=== PATIENT | male | born 1950 | race Caucasian/White ===

== ENCOUNTER 2017-01-27 21:08 | Inpatient (IN) ==
[2017-01-27] MEDS ORDERED: Ipratropium/Albuterol Neb 3 ML IH ONE (21:18)
[2017-01-27] MEDS ORDERED: methylPREDNISolone 125 MG/2 ML VIAL IVP ONE (21:18)
[2017-01-27] MEDS ORDERED: 0.9 % Sodium Chloride 1,000 ML IVC ONE (21:18)
--- NOTE | 2017-01-27 21:22 | Emergency Department Note ---
Disposition Clinical Impression: COPD exacerbation, Hyperglycemia Dyspnea Qualifiers: Dyspnea type: unspecified Qualified Code(s): R06.00 - Dyspnea, unspecified Disposition: Admitted As Inpatient Condition: Fair Referrals: Unassigned,Provider [Primary Care Provider] - Forms: ED Satisfaction Letter Time of Disposition: 22:28 SOB HPI - General Chief Complaint: ED Shortness of Breath/Dyspnea Stated Complaint: ZENON/cough Time Seen by Provider: 01/27/17 21:11 Source: patient, EMS Mode of arrival: EMS Limitations: no limitations Nursing Notes Reviewed: Yes Vital Signs Reviewed: Yes - History of Present Illness 66-year-old male history of borderline diabetes, tobacco use presents for evaluation of dyspnea. Patient states it started yesterday. Notes dyspnea at baseline. Does not take oxygen at home. Patient also notes a productive yellow sputum cough. Subjective fevers. Chest pain related to cough. Denies any nausea or vomiting. No belly pain. Patient states that he uses his inhaler at home without significant relief. Patient has not seen a guitar repair technician. - Related Data Allergies Allergy/AdvReac Type Severity Reaction Status Date / Time No Known Allergies Allergy Verified 01/27/17 21:08 All systems ED: reviewed and negative except as stated. Constitutional: Reports: as per HPI, fever Eyes: Reports: as per HPI ENT ED: Reports: as per HPI Cardiovascular: Reports: as per HPI, chest pain Respiratory: Reports: as per HPI, cough, dyspnea, sputum production Gastrointestinal: Reports: as per HPI. Denies: abdominal pain, nausea Genitourinary: Reports: as per HPI Musculoskeletal: Reports: as per HPI Integumentary: Reports: as per HPI Neurological: Reports: as per HPI Psychiatric: Reports: as per HPI Endocrine: Reports: as per HPI Hematological/Lymphatic: Reports: as per HPI Past Medical History - Past Medical History Medical history: Reports: COPD Psychiatric history: Reports: depression - Social History Smoking Status: Current every day smoker Smokeless Tobacco Status: No Alcohol use: Reports: none Drug use: Reports: none Physical Exam - General Limitations: no limitations General appearance: alert, in no apparent distress - Head Head exam: atraumatic, normocephalic, normal inspection - Eye Eye exam: Present: normal appearance, PERRL, EOMI - ENT ENT exam: normal exam, mucous membranes moist - Neck Neck exam: Present: normal inspection, trachea midline - Chest Chest inspection: Present: normal inspection, symmetric chest wall rise. Absent : tenderness - Respiratory Respiratory exam: Present: wheezes (Diffuse expiratory wheezes), prolonged expiratory phase, other (Diffusely decreased breath sounds). Absent: respiratory distress - Cardiovascular Cardiovascular exam: Present: normal rhythm, tachycardia. Absent: systolic murmur - Abdominal Exam Abdominal exam: Present: soft, Non-Tender - Extremities Exam Extremities exam: Present: normal inspection. Absent: pedal edema - Back Exam Back exam: Present: normal inspection - Neurological Exam Neurological exam: Present: alert - Skin Skin exam: Present: warm, dry, intact, normal color Course Course Narrative: Patient seen and examined. Patient on 2 L nasal cannula. Patient notes dyspnea. Patient's history of physical or consistent with a COPD exacerbation. Patient is a current every day smoker. Patient's lungs show diminished air movement with expiratory wheezes. Patient will get basic laboratory, EKG, chest x-ray as well as aerosols and steroids and IV fluid hydration. Disposition pending. - Reevaluation(s) Reevaluation #1: Patient seen and reexamined upon interventions. Patient notes some slight relief with the nebs. Patient handed to the restroom without oxygen was noted to be 83% and dyspnic on exertion. Patient does not have oxygen at home. Patient will likely be admitted for COPD exacerbation. Patient is aware of plan of care and agree. Time: 22:27 Reevaluation #2: Patient will get PO levaquin. Time: 22:50 Vital Signs Temperature 98.0 F 01/27/17 21:10 Pulse Rate 105 01/27/17 21:10 Respiratory Rate 18 01/27/17 21:10 Blood Pressure 136/77 01/27/17 21:10 O2 Sat by Pulse Oximetry 96 01/27/17 21:10 Temperature 98.0 F 01/27/17 21:10 Pulse Rate 105 01/27/17 21:10 Respiratory Rate 24 01/27/17 23:10 Blood Pressure 136/77 01/27/17 21:10 O2 Sat by Pulse Oximetry 93 01/27/17 23:10 Oxygen Delivery Oxygen Delivery Nasal Cannula Shortness of Breath/Dyspnea - MDM Narrative Medical decision making narrative: 66-year-old male here of shortness of breath. Patient is a current every day smoker. Patient's dyspnea started yesterday. Associated with subjective fevers and productive cough. Patient has no history of recent admission in the past 3 months. Patient was treated with nebs and steroids. Patient did not improve initially with interventions. Patient ambulated to the restroom with 83 % saturation. Patient does not have oxygen at home. Patient has not seen a guitar repair technician. Patient will likely need admission for further respiratory care. - Lab Data Lab results reviewed: Yes I reviewed the patient's lab results. Result diagrams: 01/27/17 21:31 01/27/17 21:31 Lab Results 01/27/17 01/27/17 01/27/17 Range/Units 21:31 21:31 21:31 WBC 10.7 (4.3-11.1) K/mcL RBC 4.45 (4.19-5.50) M/mcL Hgb 14.3 (12.9-16.9) g/dL Hct 41.2 (37.5-50.1) % MCV 92.6 (83.0-100.0) fL MCH 32.1 (28.0-33.3) pg MCHC 34.7 (31.6-35.5) g/dL RDW 12.0 (11.5-14.5) % Plt Count 179 (140-400) K/mcL MPV 9.6 (9.4-12.4) fL Immature Gran % 0.8 (0-4) % Seg Neutrophils % 75.8 % Lymphocytes % 13.3 % Monocytes % 9.0 % Eosinophils % 0.8 % Basophils % 0.3 % Neutrophils # 8.1 (1.6-8.9) K/mcL Lymphocytes # 1.4 (0.6-4.6) K/mcL Monocytes # 1.0 (0.0-1.3) K/mcL Eosinophils # 0.1 (0.0-0.6) K/mcL Basophils # 0.0 (0.0-0.2) K/mcL Sodium 140 (136-145) mEq/L Potassium 3.9 (3.5-4.5) mEq/L Chloride 102 (98-109) mEq/L Carbon Dioxide 30 H (19-29) mEq/L BUN 14 (8-26) mg/dL Creatinine 0.94 (0.72-1.25) mg/dL Est GFR ( Amer) > 60 (> 60) Est GFR (Non-Af Amer) > 60 (> 60) BUN/Creatinine Ratio 15 (6-26) Glucose 171 H (70-99) mg/dL Calculated Osmolality 295 (280-300) Calcium 9.0 (8.6-10.8) mg/dL Troponin I 0.00 (0-0.03) ng/mL B-Natriuretic Peptide (0-100) pg/mL 01/27/17 Range/Units 21:31 WBC (4.3-11.1) K/mcL RBC (4.19-5.50) M/mcL Hgb (12.9-16.9) g/dL Hct (37.5-50.1) % MCV (83.0-100.0) fL MCH (28.0-33.3) pg MCHC (31.6-35.5) g/dL RDW (11.5-14.5) % Plt Count (140-400) K/mcL MPV (9.4-12.4) fL Immature Gran % (0-4) % Seg Neutrophils % % Lymphocytes % % Monocytes % % Eosinophils % % Basophils % % Neutrophils # (1.6-8.9) K/mcL Lymphocytes # (0.6-4.6) K/mcL Monocytes # (0.0-1.3) K/mcL Eosinophils # (0.0-0.6) K/mcL Basophils # (0.0-0.2) K/mcL Sodium (136-145) mEq/L Potassium (3.5-4.5) mEq/L Chloride (98-109) mEq/L Carbon Dioxide (19-29) mEq/L BUN (8-26) mg/dL Creatinine (0.72-1.25) mg/dL Est GFR ( Amer) (> 60) Est GFR (Non-Af Amer) (> 60) BUN/Creatinine Ratio (6-26) Glucose (70-99) mg/dL Calculated Osmolality (280-300) Calcium (8.6-10.8) mg/dL Troponin I (0-0.03) ng/mL B-Natriuretic Peptide 29 (0-100) pg/mL - Radiology Data Radiology results reviewed: Yes I reviewed the patient's radiology results. Chest X-Ray 01/27/17 21:19 IMPRESSION: Normal chest x-ray D/ / Mauro Sawant MD / Mauro Sawant MD Interpreting Provider: Mauro Sawant MD - EKG Data EKG attestation: Yes I reviewed and interpreted this EKG. EKG shows normal: Reports: sinus rhythm Rate: Reports: tachycardia Rhythm: Reports: NSR [place]/QRS: Reports: normal, RBBB (incomplete) When compared to previous EKG there are: previous EKG unavailable Interpretation: Reports: nonspecific ST-T wave changes S.B.A.R. - S.B.A.RConsuelo Situation: Demographics, MOA Background: Presenting Complaint Assessment: Vital Signs, Course and respsone to treatment, Patient/Family Expectation, Pertinant Lab Results Recommendation: Barrier(s) to disposition, Recommendation based on pending studies, treatments, or consults S.B.A.RConsuelo Report Given to: Dr. Vincent PadronBConsueloADena Repor Time: 23:03 Attestation Statement - Attestation Attestation: I examined this patient and my medical decision-making was reviewed with the DIRECTOR OF REVENUE CYCLE MANAGEMENT/PA/Advanced Practice Nurse/Resident Physician. I agree with the documented findings, disposition and treatment plan as described except to the extent set forth below. Patient to the emergency department with cough sputum and fever since yesterday. He is a smoker. History of COPD. Use his inhaler today with no relief. On examination he is in no acute distress. Diffuse expiratory wheezing. Plan. Nebs and steroids. Chest x-ray cardiac workup. The patient's workup was unremarkable. He has had. DuoNeb sofa short of breath. His oxygen saturation drops to 80% with ambulation. Still with decreased air exchange in the next 3 wheezing. Patient will be admitted.
[2017-01-27 21:41] LABS: Hematocrit 41.2 % (37.5-50.1); Hemoglobin 14.3 g/dL (12.9-16.9); Immature Granulocytes % 0.8 % (0-4); Lymphocytes % 13.3 %; Mean Corpuscular HGB Conc 34.7 g/dL (31.6-35.5); Mean Corpuscular Hemoglobin 32.1 pg (28.0-33.3); Mean Corpuscular Volume 92.6 fL (83.0-100.0); Mean Platelet Volume 9.6 fL (9.4-12.4); Platelet Count 179 K/mcL (140-400); Red Blood Count 4.45 M/mcL (4.19-5.50); Segmented Neutrophils % 75.8 %
[2017-01-27 21:42] LABS: Basophils % 0.3 %; Eosinophils # 0.1 K/mcL (0.0-0.6); Eosinophils % 0.8 %; Lymphocytes # 1.4 K/mcL (0.6-4.6); Neutrophils # 8.1 K/mcL (1.6-8.9)
[2017-01-27 21:54] LABS: BUN/Creatinine Ratio 15 (6-26); Blood Urea Nitrogen 14 mg/dL (8-26); Carbon Dioxide 30 mEq/L (19-29); Chloride 102 mEq/L (98-109); Glucose 171 mg/dL (70-99); Osmolality,Calculated 295 (280-300); Potassium 3.9 mEq/L (3.5-4.5); Sodium 140 mEq/L (136-145); eGFR For African Americans > 60 (> 60); eGFR For Non-African Americans > 60 (> 60)
[2017-01-27] MEDS ORDERED: Albuterol 2.5 MG/3 ML NEBULIZER IH ONE (22:30)
[2017-01-27] MEDS ORDERED: Levofloxacin 750 MG/150 ML 750 MG/150 ML BAG IVPB ONE (22:47)
[2017-01-27] MEDS ORDERED: levoFLOXacin 500 MG TABLET PO ONE (22:50)
[2017-01-27 23:35] LABS: VBG HCO3 27.3 mEq/L (21-27); VBG PH 7.4 pH Units (7.32-7.42)
[2017-01-28] MEDS ORDERED: Naloxone 0.4 MG/ML INJ IVP PRN (02:20)
[2017-01-28] MEDS ORDERED: Acetaminophen 325 MG TABLET PO PRN (02:20)
[2017-01-28] MEDS ORDERED: Dextrose Gel 15 GM PO PRN ×2 (02:23)
[2017-01-28] MEDS ORDERED: *HR* Dextrose 50 % in Water (Syg) 50 ML SYRINGE IVP PRN (02:23)
[2017-01-28] MEDS ORDERED: D5% in Water 1,000 ML IVC PRN (02:23)
--- NOTE | 2017-01-28 02:47 | Internal Med History&Physical ---
Date of Encounter: 01/28/17 Time of Encounter: 02:00 Assessment and Plan (1) COPD exacerbation Current visit: Yes Status: Acute Acute infective exacerbation of COPD. Treatment with Solu-Medrol, levofloxacin , Mucinex. (2) Acute respiratory failure Current visit: Yes Status: Acute Secondary to Acute exacerbation of COPD. Supplemental oxygen; continue therapy for COPD exacerbation. Qualifiers: Respiratory failure complication: hypoxia Qualified Code(s): J96.01 - Acute respiratory failure with hypoxia (3) ARABELLA (obstructive sleep apnea) Current visit: Yes Status: Chronic (4) Hyperglycemia Current visit: Yes Status: Acute Start sliding scale insulin. check A1C (5) DVT prophylaxis Current visit: Yes Status: Acute Enoxaparin (6) Nicotine dependence Current visit: Yes Status: Chronic Counseled for smoking cessation Qualifiers: Nicotine product type: cigarettes Substance use status: other nicotine- induced disorder Qualified Code(s): F17.218 - Nicotine dependence, cigarettes , with other nicotine-induced disorders Internal Medicine - H&P: HPI Chief complaint: Shortness of breath Admitted From: Emergency Dept Plans for Post Hospital Care: Home History of present illness: Mr. Medeiros is a 66 year old male with past medical history significant for COPD, ARABELLA - on CPAP, borderline diabetes and depression. He is current every day smoker. He presents to the emergency department with 3 day history of worsening shortness of breath on minimal exertion - he used his inhaler at home without significant relief. He reports cough with some dark yellow sputum but denies hemoptysis. He denies fever, chills, nausea, vomiting. He reports anterior chest pain associated with coughing. He denies abdominal pain, dysuria , hematuria, bowel problems. He was evaluated in the emergency department and was noted to have significant wheezing and was treated with bronchodilators, levofloxacin and Solu-Medrol, for suspected COPD exacerbation. He was noted to be hypoxic when he walked to the restroom without oxygen saturation was noted to be 83% and dyspnic on exertion. Chest x-ray was negative. He he is admitted to the hospitalist service for further workup and management. Past Med Surg Social Fam HX - Past Medical History Medical history: COPD Psychiatric history: depression - Past Surgical History Surgical History: herniorrhaphy - Social History Smoking Status: Current every day smoker Smokeless Tobacco Status: No Alcohol use: none Drug use: none - Additional Family History Additional family history: Both his parents are alive. Denies major medical problems Internal Medicine - H&P: Meds Allergies No Known Allergies Allergy (Verified 01/27/17 21:08) All Systems PM: A 10-system review of systems was performed and is negative for pertinent findings except as documented above in the HPI. - Constitutional Vitals: Temp Pulse Resp BP Pulse Ox 98.0 F 100 20 122/70 94 01/28/17 01:57 01/28/17 01:57 01/28/17 01:57 01/28/17 01:57 01/28/17 01:57 Exam: General: Not in acute pain at the time of my evaluation HEENT: Oral mucosa is moist. No conjunctival palor or scleral icterus. Using pursed lips to breath Neck: No obvious neck swellings Lungs: Bilateral wheezes present Cardiac: Regular rate and rhythm. No significant murmurs Abdomen: obese, non tender. Bowel sounds present Genitourinary: No wilkins catheter Neurological: Alert and oriented. No gross localizing deficits Psych: Not aggressive or agitated Extremities: no significant leg edema Skin: No generalized rash Internal Med - H&P Results - Labs CBC & Chem 7: 01/27/17 21:31 01/27/17 21:31 - EKG Data -: EKG Interpreted by Myself EKG shows normal: sinus rhythm Rate: tachycardia - EKG Data EKG comments: First-degree AV block, partial RBBB 01/28/17 02:48 - Impressions ITS Impressions Chest X-Ray 01/27/17 21:19 IMPRESSION: Normal chest x-ray D/ / Mauro Sawant MD / Mauro Sawant MD Interpreting Provider: Mauro Sawant MD
[2017-01-28] MEDS ORDERED: Ipratropium/Albuterol Neb 3 ML IH PRN (03:11)
[2017-01-28] MEDS: Ipratropium/Albuterol Neb 3 ML IH SCH ×5 (04:10→21:59)
[2017-01-28 04:51] LABS: Basophils % 0.1 %; Hematocrit 39.1 % (37.5-50.1); Hemoglobin 13.4 g/dL (12.9-16.9); Immature Granulocytes % 0.9 % (0-4); Lymphocytes # 0.7 K/mcL (0.6-4.6); Lymphocytes % 7.4 %; Mean Corpuscular HGB Conc 34.3 g/dL (31.6-35.5); Mean Corpuscular Hemoglobin 31.8 pg (28.0-33.3); Mean Corpuscular Volume 92.7 fL (83.0-100.0); Mean Platelet Volume 10.3 fL (9.4-12.4); Monocytes # 0.2 K/mcL (0.0-1.3); Monocytes % 1.8 %; Neutrophils # 8.5 K/mcL (1.6-8.9); Platelet Count 176 K/mcL (140-400); Red Blood Count 4.22 M/mcL (4.19-5.50); Red Cell Distribution Width 11.9 % (11.5-14.5); Segmented Neutrophils % 89.8 %
[2017-01-28 04:55] LABS: Hemoglobin A1C 6.1 %
[2017-01-28 04:59] LABS: BUN/Creatinine Ratio 14 (6-26); Blood Urea Nitrogen 13 mg/dL (8-26); Calcium 8.7 mg/dL (8.6-10.8); Carbon Dioxide 23 mEq/L (19-29); Chloride 105 mEq/L (98-109); Glucose 191 mg/dL (70-99); Osmolality,Calculated 293 (280-300); Potassium 4.1 mEq/L (3.5-4.5); Sodium 139 mEq/L (136-145); eGFR For African Americans > 60 (> 60); eGFR For Non-African Americans > 60 (> 60)
[2017-01-28] MEDS: MethylPREDNISolone 40 MG/ML VIAL IVP SCH ×3 (05:31→17:43)
[2017-01-28] MEDS: *HR* Enoxaparin 40 MG/0.4 ML SYRINGE SQ SCH (05:31)
[2017-01-28] MEDS: Famotidine 20 MG TABLET PO SCH ×3 (08:31→22:27)
[2017-01-28] MEDS: Insulin LISPRO 300 UNITS/3 ML VIAL SQ SCH ×3 (08:31→17:44)
[2017-01-28] MEDS ORDERED: *HR* Morphine 2 MG/ML SYRINGE IVP PRN (14:08)
[2017-01-28] MEDS ORDERED: *HR* HYDROcodone/Acet 5/325 mg TABLET PO PRN (14:08)
[2017-01-28] MEDS ORDERED: Albuterol 2.5 MG/3 ML NEBULIZER IH PRN (14:08)
--- NOTE | 2017-01-28 14:10 | Event Note ---
Date of Encounter: 01/28/17 Time of Encounter: 12:30 Patient seen and examined. On examination, patient is sitting upright on the side of his bed eating lunch. Patient said he feels a lot better than yesterday but is not yet back to his baseline. He states that when he goes to the bathroom, he has to stop and catch his breath before he can come back. He states he is not on oxygen at home is usually able to move freely about his house without any restrictions. Chest x-ray negative. Continue Levaquin. Currently on 2 L per nasal cannula continuously. Continue CPAP while asleep. Borderline diabetic with an A1c of 6.1%. Declines tobacco counseling. Waiting for his home med list to be finalized ( had to bring in list), will continue once verified. ITS Impressions Chest X-Ray 01/27/17 21:19 IMPRESSION: Normal chest x-ray D/ / Mauro Sawant MD / Mauro Sawant MD Interpreting Provider: Mauro Sawant MD
[2017-01-28] MEDS ORDERED: traZODone 50 MG TABLET PO PRN (17:28)
[2017-01-28] MEDS: BuPROPion SR (12 HR) 100 MG TABLET PO SCH (17:44)
--- NOTE | 2017-01-28 20:42 | Electrocardiograph Report ---
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
[2017-01-28] MEDS ORDERED: Insulin LISPRO 300 UNITS/3 ML VIAL SQ SCH (21:00)
[2017-01-28] MEDS ORDERED: Levofloxacin 750 MG/150 ML 750 MG/150 ML BAG IVPB SCH (22:00)
[2017-01-29] MEDS: MethylPREDNISolone 40 MG/ML VIAL IVP SCH ×3 (00:07→11:26)
[2017-01-29] MEDS: Fluticasone Propionate Nasal 50 MCG/SPRAY BOTTLE NS SCH ×2 (00:07→08:21)
[2017-01-29] MEDS: Ipratropium/Albuterol Neb 3 ML IH SCH ×4 (04:25→15:50)
[2017-01-29] MEDS: *HR* Enoxaparin 40 MG/0.4 ML SYRINGE SQ SCH (05:58)
[2017-01-29] MEDS: Insulin LISPRO 300 UNITS/3 ML VIAL SQ SCH ×2 (08:22→11:23)
[2017-01-29] MEDS: Famotidine 20 MG TABLET PO SCH ×2 (08:24)
[2017-01-29] MEDS: BuPROPion SR (12 HR) 100 MG TABLET PO SCH (08:28)
[2017-01-29] MEDS ORDERED: Aspirin 81 MG TAB.CHEW PO SCH (09:00)
[2017-01-29 10:56] VITALS: BP 114/68
--- NOTE | 2017-01-29 13:30 | Discharge Summary ---
Date of Encounter: 01/29/17 Time of Encounter: 10:30 - Discharge Diagnosis (1) COPD exacerbation Priority: Primary Status: Acute Comments: Patient stating his shortness of breath was consistent with his baseline on day of discharge. He did not qualify for supplemental oxygenation. Ideally, would like to have kept him overnight to wean him off IV Solu-Medrol but patient states he needs to go home today. We will send with 3 week taper prednisone. Continues to smoke. (2) Borderline diabetes Priority: Primary Status: Acute Comments: A1c 6.1%. Recommend dietary and lifestyle changes. (3) Acute respiratory failure Priority: Primary Status: Resolved Comments: patient did not qualify for supplemental oxygenation on day of discharge. Qualifiers: Respiratory failure complication: hypoxia Qualified Code(s): J96.01 - Acute respiratory failure with hypoxia (4) ARABELLA (obstructive sleep apnea) Priority: Secondary Status: Chronic (5) DVT prophylaxis Priority: Primary Status: Acute Comments: Subcutaneous Lovenox while admitted (6) Nicotine dependence Priority: Secondary Status: Chronic Comments: Declined counseling Qualifiers: Nicotine product type: cigarettes Substance use status: other nicotine- induced disorder Qualified Code(s): F17.218 - Nicotine dependence, cigarettes , with other nicotine-induced disorders - Discharge Medications Prescriptions: GuaiFENesin ER [Mucinex] 600 mg PO BID #14 tbbp.12hr Levofloxacin 750 mg PO DAILY #4 tablet PredniSONE 10 mg PO DAILY #46 tablet Home Medications: Albuterol Sulfate [Proair Hfa] 2 puff IH Q6H PRN 01/28/17 [History] Alendronate Sodium [Fosamax] 70 mg PO QWEEK 01/28/17 [History] Aspirin 81 mg PO DAILY 01/28/17 [History] Atorvastatin Calcium [Lipitor] 10 mg PO DAILY 01/28/17 [History] BuPROPion SR (12 HR) [Wellbutrin SR] 200 mg PO QAM 01/28/17 [History] Calcium Carbonate/Vitamin D3 [Calcium 250+D Tablet] 1 tab PO DAILY 01/28/17 [ History] Cholecalciferol (D-3) [Vitamin D] 2,000 unit PO DAILY 01/28/17 [History] Fluticasone Propionate Nasal [Flonase] 2 spray NS DAILY 01/28/17 [History] Meloxicam [Mobic] 7.5 mg PO DAILY 01/28/17 [History] Multivitamin [Multi-Day Vitamins] 1 tab PO DAILY 01/28/17 [History] Nicotine Gum [Nicorette gum] 2 mg BC Q2H 01/28/17 [History] Olodaterol HCl [Striverdi Respimat] 2 puff IH DAILY 01/28/17 [History] Quetiapine Fumarate [Seroquel] 100 mg PO BID 01/28/17 [History] Quetiapine Fumarate [Seroquel] 200 mg PO HS 01/28/17 [History] Ranitidine HCl [Heartburn Relief] 150 mg PO BID 01/28/17 [History] Trazodone HCl 100 mg PO HS PRN 01/28/17 [History] GuaiFENesin ER [Mucinex] 600 mg PO BID #14 tbbp.12hr 01/29/17 [Rx] Levofloxacin 750 mg PO DAILY #4 tablet 01/29/17 [Rx] PredniSONE 10 mg PO DAILY #46 tablet 01/29/17 [Rx] Allergies/Adverse Reactions: Allergies No Known Allergies Allergy (Verified 01/27/17 21:08) Date of admission: 01/28/17 02:20 Primary care physician: PCP SD Discharging clinician: Joya Ibrahim Anticipated date of discharge: 01/29/17 - Patient Status Disposition: Home, Self-Care Condition: Fair Functional capacity at discharge: independent ambulation Overall status at discharge: patient is back to baseline - Discharge Instructions Follow Up With: SD,PCP [Primary Care Provider] - 02/05/17 1:30 pm Additional Instructions: Follow-up with primary care provider as scheduled - Diet and Activity Activity: increase activity as tolerated Diet: diabetic diet, low fat, low cholesterol, low salt diet Hospital course: Mr. Medeiros is a 66 year old male with past medical history of COPD, ARABELLA on CPAP, borderline diabetes, and depression, tobacco abuse. Patient presented to emergency department chief complaint a 3 day history of worsening shortness of breath with minimal exertion. He states he uses inhalers at home without relief. Patient also reporting cough with dark yellow sputum production but denies hemoptysis. Workup in the emergency department unremarkable. Chest x- ray negative. Patient was admitted to the hospitalist service for further evaluation and management of his COPD exacerbation. He initially required supplemental oxygenation however he was weaned to room air prior to discharge on the second day of admission. On day of discharge, he states that he was back to his baseline and wanted to go home. Ideally, would like to have kept him overnight to wean him off IV Solu-Medrol but patient states he needs to go home today. We will send with 2-3 week taper of prednisone. On the first day that is his admission, he was not able to walk to and from the bathroom without stopping to catch his breath and on day of discharge, he was able to ambulate around the unit and his room freely. He was discharged home in stable condition with close outpatient follow-up recommended. Regarding his controller meds, he is only on a LABA and a BRADLEY. Recommend possible addition of an ICS at the discretion of his PCP. ITS Impressions Chest X-Ray 01/27/17 21:19 IMPRESSION: Normal chest x-ray D/ / Mauro Sawant MD / Mauro Sawant MD Interpreting Provider: Mauro Sawant MD - Time Spent with Patient Total time spent providing and/or coordinating discharge services: - Constitutional Vitals: Temp Pulse Resp BP Pulse Ox 98.0 F 84 16 114/68 95 01/29/17 10:51 01/29/17 10:51 01/29/17 11:42 01/29/17 10:51 01/29/17 11:42 General appearance: Present: A&O X 3, pleasant, no acute distress, answers questions appropriately - Head Head exam: Present: atraumatic, normocephalic - Eye Eye exam: Present: PERRL, conjuntiva pink, sclera anicteric Pupils: Present: PERRL - Neck Neck exam general surgery: Present: supple, trachea midline. Absent: lymphadenopathy - Respiratory Respiratory exam: Present: accessory muscle use, decreased breath sounds, prolonged expiratory phase. Absent: rales, respiratory distress, rhonchi, wheezes - Cardiovascular Cardiovascular exam: Present: RRR, +S1, +S2. Absent: diastolic murmur, gallop, rubs, systolic murmur - GI/Abdominal GI/Abdominal exam: Present: normal bowel sounds, soft, no peritoneal signs. Absent: distended, tenderness - Extremities Exam Extremities exam: Present: warm, radial pulses palpable and symetrical. Absent : calf tenderness, cyanotic, pedal edema - Neurological Exam Neurological exam: Present: alert, CN II-XII intact, normal gait, oriented X3, no focal deficits, strengths equal and symetr throughout. Absent: pronater drift, facial droop, speech deficit - Skin Skin exam: Present: dry, intact, normal color, warm
== END 2017-01-29 16:05 | disposition home or self-care (01) | DRG 190 ==
LOC: EMEROO 21:08 → 3BNU 21:08
PROVIDERS: ADMIT Internal Medicine; ATTEND Nurse Practitioner Family

== ENCOUNTER 2022-03-08 11:54 | Inpatient (IN) ==
[2022-03-08] MEDS ORDERED: methylPREDNISolone 125 MG/2 ML VIAL IVP ONE (12:19)
[2022-03-08] MEDS ORDERED: Ipratropium/Albuterol Neb 3 ML IH ONE (12:19)
[2022-03-08] MEDS ORDERED: cefTRIAXone 1,000 MG in 0.9 % Sodium Chloride 10 ML IVP ONE (12:19)
[2022-03-08] MEDS ORDERED: Ondansetron 4 MG/2 ML VIAL IVP ONE (12:20)
[2022-03-08 12:52] LABS: Basophils % 0.3 %; Hematocrit 45.9 % (37.5-50.1); Hemoglobin 15.2 g/dL (12.9-16.9); Immature Granulocytes % 0.4 % (0-4); Lymphocytes # 0.7 K/mcL (0.6-4.6); Lymphocytes % 6.8 %; Mean Corpuscular HGB Conc 33.1 g/dL (31.6-35.5); Mean Corpuscular Hemoglobin 32.5 pg (28.0-33.3); Mean Corpuscular Volume 98.3 fL (83.0-100.0); Mean Platelet Volume 11.2 fL (9.4-12.4); Monocytes # 1.1 K/mcL (0.0-1.3); Monocytes % 11.1 %; Neutrophils # 8.3 K/mcL (1.6-8.9); Platelet Count 154 K/mcL (140-400); Red Blood Count 4.67 M/mcL (4.19-5.50); Segmented Neutrophils % 81.4 %; White Blood Count 10.2 K/mcL (4.3-11.1)
[2022-03-08 12:56] LABS: ABG Base Excess 2 mEq/L (-2 to 3); ABG HCO3 34 mEq/L (21-27); ABG Oxygen Saturation 100 % (95-98); ABG PCO2 94 mmHg (35-45); ABG PH 7.17 pH Units (7.32-7.45); ABG PO2 286 mmHg (85-104); ABG TCO2 37 mEq/L (20-26); Blood Gas Modality BiLevel
[2022-03-08 13:03] LABS: INR 1.3; Prothrombin Time 14.2 Seconds (9.4-12.1)
[2022-03-08 13:06] LABS: Activated Partial Thrombo Time 29.4 Seconds (26.0-36.0)
[2022-03-08 13:18] LABS: Adenovirus Not Detected (Not Detect); Coronavirus 229E Not Detected (Not Detect); Coronavirus HKU1 Not Detected (Not Detect); Coronavirus NL63 Not Detected (Not Detect); Coronavirus OC43 Not Detected (Not Detect); Human Metapneumovirus Not Detected (Not Detect); Human Rhinovirus/Enterovirus Not Detected (Not Detect); Influenza A Subtype 2009 H1 Not Detected (Not Detect); Influenza B Not Detected (Not Detect); Parainfluenza Virus 1 Not Detected (Not Detect); SARS-CoV-2 Not Detected (Not Detect)
[2022-03-08 13:19] LABS: Bordetella Pertussis Not Detected (Not Detect); Chlamydophila pneumoniae Not Detected (Not Detect); Mycoplasma pneumoniae Not Detected (Not Detect); Parainfluenza Virus 2 Not Detected (Not Detect); Parainfluenza Virus 3 Not Detected (Not Detect); Parainfluenza Virus 4 DETECTED (Not Detect); Respiratory Syncytial Virus Not Detected (Not Detect)
[2022-03-08 13:35] LABS: Albumin 4.6 g/dL (3.5-5.7); Albumin/Globulin Ratio 1.4 (1.1-2.2); Bilirubin,Direct 0.3 mg/dL (0.0-0.2); Bilirubin,Indirect 0.6 mg/dL (0.0-1.0); Bilirubin,Total 0.9 mg/dL (0.3-1.0); Calcium 9.5 mg/dL (8.6-10.3); Globulin 3.4 g/dL (2.4-3.5); Potassium 4.5 mEq/L (3.5-5.1); Troponin I 0.03 ng/mL (< 0.04)
[2022-03-08] MEDS ORDERED: Melatonin 3 MG TABLET PO PRN (14:33)
[2022-03-08] MEDS ORDERED: Naloxone 0.4 MG/ML INJ IVP PRN (14:33)
[2022-03-08] MEDS ORDERED: Ondansetron ODT 4 MG TAB.RAPDIS SL PRN (14:33)
[2022-03-08 14:52] LABS: ABG Base Excess 2 mEq/L (-2 to 3); ABG HCO3 35 mEq/L (21-27); ABG Oxygen Saturation 100 % (95-98); ABG PCO2 104 mmHg (35-45); ABG PH 7.14 pH Units (7.32-7.45); ABG PO2 346 mmHg (85-104); ABG TCO2 39 mEq/L (20-26); Blood Gas Modality BiLevel
[2022-03-08] MEDS ORDERED: *HR* Etomidate 40 MG/20 ML VIAL IVP ONE (15:15)
[2022-03-08] MEDS ORDERED: *HR* Rocuronium Bromide 50 MG/5 ML VIAL IVP ONE (15:15)
[2022-03-08] MEDS ORDERED: *HR* Midazolam HCl 2 MG/2 ML VIAL IVP ONE (15:15)
[2022-03-08 15:52] LABS: ABG Base Excess 2 mEq/L (-2 to 3); ABG HCO3 34 mEq/L (21-27); ABG Oxygen Saturation 96 % (95-98); ABG PCO2 96 mmHg (35-45); ABG PH 7.16 pH Units (7.32-7.45); ABG PO2 107 mmHg (85-104); ABG TCO2 37 mEq/L (20-26); Blood Gas Modality BiLevel
[2022-03-08] MEDS ORDERED: *HR* EPINEPHrine 100 MCG/10 ML SYRINGE IVP ONE (16:05)
[2022-03-08] MEDS ORDERED: *HR* EPINEPHrine 100 MCG/10 ML SYRINGE IVP PRN (16:07)
[2022-03-08] MEDS ORDERED: *HR* FentaNYL (PF) 1,000 MCG/20 ML VIAL ONE (16:17)
[2022-03-08] MEDS ORDERED: *HR* Midazolam HCl 50 MG/10 ML VIAL IVC ONE (16:17)
[2022-03-08] MEDS ORDERED: *HR* Norepinephrine 4 MG/4 ML VIAL IVC ONE (16:18)
[2022-03-08] MEDS ORDERED: 0.9 % Sodium Chloride 250 ML ONE (16:18)
[2022-03-08] MEDS: FentaNYL (PF) 1,000 MCG/100 ML IV.SOLN IVC SCH (16:36)
[2022-03-08] MEDS: Midazolam HCl 50 MG/50 ML IV.SOLN IVC SCH ×2 (16:37→23:54)
[2022-03-08] MEDS ORDERED: 0.9 % Sodium Chloride 1,000 ML IVC ONE (18:46)
[2022-03-08] MEDS ORDERED: Artificial Tears SOLN 15 ML BOTTLE BOTH EYES PRN (18:54)
[2022-03-08] MEDS: Norepinephrine 4 MG/254 ML IV.SOLN IVC SCH (19:22)
[2022-03-08] MEDS: levoFLOXacin 750 MG/150 ML 750 MG/150 ML BAG IVPB SCH (19:37)
[2022-03-08] MEDS: Pantoprazole 40 MG VIAL IVP SCH (19:37)
[2022-03-08] MEDS: Artificial Tears SOLN 15 ML BOTTLE BOTH EYES SCH ×2 (19:38→23:24)
[2022-03-08] MEDS ORDERED: MethylPREDNISolone 40 MG/ML VIAL IVP SCH (20:24)
[2022-03-08 20:37] LABS: ABG Base Excess 2 mEq/L (-2 to 3); ABG HCO3 30 mEq/L (21-27); ABG Oxygen Saturation 98 % (95-98); ABG PCO2 62 mmHg (35-45); ABG PO2 110 mmHg (85-104); ABG TCO2 32 mEq/L (20-26); Blood Gas VT 500 cc
[2022-03-08] MEDS ORDERED: Perflutren Lipid Microsphere 1.3 ML in 0.9 % Sodium Chloride 8.7 ML IVP PRN (20:42)
[2022-03-08] MEDS: *HR* Heparin 5,000 UNIT/ML VIAL SQ SCH (20:52)
[2022-03-08] MEDS: Chlorhexidine Rinse 15 ML MOUTHWASH MM SCH (20:52)
[2022-03-08] MEDS: MethylPREDNISolone 40 MG/ML VIAL IVP SCH (23:26)
[2022-03-09 03:27] LABS: Basophils % 0.1 %; Hematocrit 39.2 % (37.5-50.1); Immature Granulocytes % 0.6 % (0-4); Lymphocytes # 0.6 K/mcL (0.6-4.6); Lymphocytes % 6.2 %; Mean Corpuscular HGB Conc 33.4 g/dL (31.6-35.5); Mean Corpuscular Hemoglobin 32.3 pg (28.0-33.3); Mean Corpuscular Volume 96.8 fL (83.0-100.0); Monocytes # 0.8 K/mcL (0.0-1.3); Monocytes % 7.9 %; Neutrophils # 8.3 K/mcL (1.6-8.9); Platelet Count 153 K/mcL (140-400); Red Blood Count 4.05 M/mcL (4.19-5.50); Red Cell Distribution Width 11.8 % (11.5-14.5); Segmented Neutrophils % 85.2 %; White Blood Count 9.7 K/mcL (4.3-11.1)
[2022-03-09 03:31] LABS: Hemoglobin 13.1 g/dL (12.9-16.9)
[2022-03-09] MEDS: Norepinephrine 4 MG/254 ML IV.SOLN IVC SCH ×2 (03:41→15:39)
[2022-03-09 03:46] LABS: Calcium 8.7 mg/dL (8.6-10.3); Potassium 4.2 mEq/L (3.5-5.1)
[2022-03-09 04:33] LABS: ABG Base Excess 4 mEq/L (-2 to 3); ABG HCO3 29 mEq/L (21-27); ABG Oxygen Saturation 99 % (95-98); ABG PCO2 47 mmHg (35-45); ABG PO2 157 mmHg (85-104); ABG TCO2 31 mEq/L (20-26); Blood Gas VT 550 cc
[2022-03-09] MEDS: Artificial Tears SOLN 15 ML BOTTLE BOTH EYES SCH ×6 (05:14→23:01)
[2022-03-09] MEDS: FentaNYL (PF) 1,000 MCG/100 ML IV.SOLN IVC SCH ×2 (06:18→15:38)
[2022-03-09] MEDS: *HR* Heparin 5,000 UNIT/ML VIAL SQ SCH ×3 (06:24→22:55)
[2022-03-09] MEDS: MethylPREDNISolone 40 MG/ML VIAL IVP SCH ×4 (06:24→23:01)
[2022-03-09] MEDS: Pantoprazole 40 MG VIAL IVP SCH (08:01)
[2022-03-09] MEDS: Chlorhexidine Rinse 15 ML MOUTHWASH MM SCH ×2 (08:01→20:00)
[2022-03-09] MEDS ORDERED: Furosemide 40 MG/4 ML VIAL IVP ONE (08:02)
[2022-03-09] MEDS: Midazolam HCl 50 MG/50 ML IV.SOLN IVC SCH (10:03)
[2022-03-09 10:35] LABS: mecA/C Methicillin-Resist Gene Not Detected (Not Detect)
[2022-03-09 10:37] LABS: A.calcoaceticus-baumannii cplx Not Detected (Not Detect); Bacteroides fragilis by PCR Not Detected (Not Detect); Enterobacter cloacae Cmplx PCR Not Detected (Not Detect); Enterobacterales by PCR Not Detected (Not Detect); Enterococcus faecalis by PCR Not Detected (Not Detect); Enterococcus faecium by PCR Not Detected (Not Detect); Escherichia coli by PCR Not Detected (Not Detect); Klebs. pneumoniae group by PCR Not Detected (Not Detect); Klebsiella aerogenes by PCR Not Detected (Not Detect); Klebsiella oxytoca by PCR Not Detected (Not Detect); Proteus by PCR Not Detected (Not Detect); Pseudomonas aeruginosa by PCR Not Detected (Not Detect); Salmonella species by PCR Not Detected (Not Detect); Serratia marcescens by PCR Not Detected (Not Detect); Staph epidermidis by PCR DETECTED (Not Detect); Staph lugdunensis by PCR Not Detected (Not Detect); Staphylococcus aureus by PCR Not Detected (Not Detect); Streptococcus agalactiae(B)PCR Not Detected (Not Detect); Streptococcus by PCR Not Detected (Not Detect); Streptococcus pneumoniae PCR Not Detected (Not Detect); Streptococcus pyogenes (A) PCR Not Detected (Not Detect)
[2022-03-09 10:38] LABS: Candida albicans by PCR Not Detected (Not Detect); Candida auris by PCR Not Detected (Not Detect); Candida glabrata by PCR Not Detected (Not Detect); Candida krusei by PCR Not Detected (Not Detect); Candida parapsilosis by PCR Not Detected (Not Detect); Candida tropicalis by PCR Not Detected (Not Detect); Crypto. neoformans/gattii PCR Not Detected (Not Detect); Stenotrophomonas maltophilia Not Detected (Not Detect)
[2022-03-09] MEDS ORDERED: *HR* Dextrose 50 % in Water (Syg) 50 ML SYRINGE IVP PRN (11:24)
[2022-03-09] MEDS ORDERED: Dextrose Gel 15 GM/37.5 ML TUBE PO PRN ×2 (11:24)
[2022-03-09] MEDS ORDERED: D5% in Water 1,000 ML IVC PRN (11:24)
[2022-03-09] MEDS: Ipratropium/Albuterol Neb 3 ML IH SCH ×3 (11:34→19:49)
[2022-03-09] MEDS: Insulin LISPRO 300 UNITS/3 ML VIAL SUBQ SCH ×3 (11:37→23:58)
[2022-03-09] MEDS: Dexmedetomidine HCl 400 MCG/100 ML MLS IVC SCH (16:05)
[2022-03-09] MEDS ORDERED: Albumin Human 5% 12.5 GM/250 ML IV.SOLN IVPB ONE (18:02)
[2022-03-09] MEDS ORDERED: Ipratropium/Albuterol Neb 3 ML IH SCH (19:30)
[2022-03-10] MEDS: Ipratropium/Albuterol Neb 3 ML IH SCH ×6 (00:04→20:10)
[2022-03-10] MEDS: Dexmedetomidine HCl 400 MCG/100 ML MLS IVC SCH ×2 (00:55→06:05)
[2022-03-10] MEDS: FentaNYL (PF) 1,000 MCG/100 ML IV.SOLN IVC SCH ×3 (02:11→19:13)
[2022-03-10 04:18] LABS: ABG Base Excess 5 mEq/L (-2 to 3); ABG HCO3 35 mEq/L (21-27); ABG Oxygen Saturation 86 % (95-98); ABG PCO2 72 mmHg (35-45); ABG PH 7.29 pH Units (7.32-7.45); ABG PO2 59 mmHg (85-104); ABG TCO2 37 mEq/L (20-26); Blood Gas VT 520 cc
[2022-03-10 04:29] LABS: Hematocrit 40.2 % (37.5-50.1); Hemoglobin 13.4 g/dL (12.9-16.9); Mean Corpuscular HGB Conc 33.3 g/dL (31.6-35.5); Mean Corpuscular Hemoglobin 32.1 pg (28.0-33.3); Mean Corpuscular Volume 96.4 fL (83.0-100.0); Mean Platelet Volume 11.2 fL (9.4-12.4); Platelet Count 169 K/mcL (140-400); Red Blood Count 4.17 M/mcL (4.19-5.50); Red Cell Distribution Width 11.6 % (11.5-14.5); White Blood Count 10.1 K/mcL (4.3-11.1)
[2022-03-10 04:48] LABS: Potassium 4.1 mEq/L (3.5-5.1)
[2022-03-10] MEDS: Artificial Tears SOLN 15 ML BOTTLE BOTH EYES SCH ×6 (05:07→23:08)
[2022-03-10] MEDS: *HR* Heparin 5,000 UNIT/ML VIAL SQ SCH ×3 (06:45→21:06)
[2022-03-10] MEDS: MethylPREDNISolone 40 MG/ML VIAL IVP SCH ×4 (06:45→23:08)
[2022-03-10] MEDS: Insulin LISPRO 300 UNITS/3 ML VIAL SUBQ SCH ×4 (06:48→23:09)
[2022-03-10] MEDS: Norepinephrine 4 MG/254 ML IV.SOLN IVC SCH ×2 (07:07→19:14)
[2022-03-10] MEDS: Chlorhexidine Rinse 15 ML MOUTHWASH MM SCH ×2 (07:07→19:14)
[2022-03-10] MEDS: Pantoprazole 40 MG VIAL IVP SCH (07:07)
[2022-03-10 10:53] LABS: ABG Base Excess 7 mEq/L (-2 to 3); ABG HCO3 33 mEq/L (21-27); ABG Oxygen Saturation 96 % (95-98); ABG PCO2 48 mmHg (35-45); ABG PH 7.44 pH Units (7.32-7.45); ABG PO2 80 mmHg (85-104); ABG TCO2 34 mEq/L (20-26); Blood Gas VT 520 cc
[2022-03-10] MEDS ORDERED: *HR* Midazolam HCl 5 MG/5 ML VIAL IVP ONE (11:10)
[2022-03-10] MEDS ORDERED: *HR* Rocuronium Bromide 50 MG/5 ML VIAL IVP ONE (11:10)
[2022-03-10] MEDS ORDERED: *HR* Succinylcholine 200 MG/10 ML VIAL IVP ONE (11:10)
[2022-03-10] MEDS: levoFLOXacin 750 MG/150 ML 750 MG/150 ML BAG IVPB SCH (19:14)
[2022-03-11] MEDS: Ipratropium/Albuterol Neb 3 ML IH SCH ×7 (00:27→23:33)
[2022-03-11] MEDS: FentaNYL (PF) 1,000 MCG/100 ML IV.SOLN IVC SCH ×5 (01:09→23:42)
[2022-03-11] MEDS: Artificial Tears SOLN 15 ML BOTTLE BOTH EYES SCH ×6 (03:00→23:26)
[2022-03-11 03:22] LABS: Basophils # 0.1 K/mcL (0.0-0.2); Basophils % 0.5 %; Hematocrit 41.6 % (37.5-50.1); Hemoglobin 13.7 g/dL (12.9-16.9); Immature Granulocytes % 2.8 % (0-4); Lymphocytes # 0.5 K/mcL (0.6-4.6); Lymphocytes % 4.4 %; Mean Corpuscular HGB Conc 32.9 g/dL (31.6-35.5); Mean Corpuscular Hemoglobin 32.4 pg (28.0-33.3); Mean Corpuscular Volume 98.3 fL (83.0-100.0); Mean Platelet Volume 11.2 fL (9.4-12.4); Monocytes # 0.6 K/mcL (0.0-1.3); Monocytes % 5.1 %; Neutrophils # 10.2 K/mcL (1.6-8.9); Platelet Count 182 K/mcL (140-400); Red Blood Count 4.23 M/mcL (4.19-5.50); Red Cell Distribution Width 11.8 % (11.5-14.5); Segmented Neutrophils % 87.2 %; White Blood Count 11.7 K/mcL (4.3-11.1)
[2022-03-11 03:42] LABS: Calcium 9.1 mg/dL (8.6-10.3); Potassium 4.1 mEq/L (3.5-5.1)
[2022-03-11 04:41] LABS: ABG Base Excess 7 mEq/L (-2 to 3); ABG HCO3 32 mEq/L (21-27); ABG Oxygen Saturation 96 % (95-98); ABG PCO2 50 mmHg (35-45); ABG PH 7.42 pH Units (7.32-7.45); ABG PO2 81 mmHg (85-104); ABG TCO2 34 mEq/L (20-26); Blood Gas Modality ASSIST CONTROL; Blood Gas VT 520 cc
[2022-03-11] MEDS: MethylPREDNISolone 40 MG/ML VIAL IVP SCH ×4 (05:04→23:26)
[2022-03-11] MEDS: Insulin LISPRO 300 UNITS/3 ML VIAL SUBQ SCH ×4 (05:04→23:27)
[2022-03-11] MEDS: *HR* Heparin 5,000 UNIT/ML VIAL SQ SCH ×3 (05:04→23:26)
[2022-03-11] MEDS: Chlorhexidine Rinse 15 ML MOUTHWASH MM SCH ×2 (07:04→19:45)
[2022-03-11] MEDS: Pantoprazole 40 MG VIAL IVP SCH (07:04)
[2022-03-11] MEDS: QUEtiapine Fumarate 100 MG TABLET PO SCH ×2 (09:53→19:45)
[2022-03-11] MEDS: Norepinephrine 4 MG/254 ML IV.SOLN IVC SCH ×2 (10:43→23:38)
[2022-03-12] MEDS: Dexmedetomidine HCl 400 MCG/100 ML MLS IVC SCH ×3 (03:37→19:12)
[2022-03-12] MEDS: Artificial Tears SOLN 15 ML BOTTLE BOTH EYES SCH ×6 (03:37→23:00)
[2022-03-12 03:41] LABS: Basophils % 0.1 %; Hematocrit 42.4 % (37.5-50.1); Hemoglobin 13.5 g/dL (12.9-16.9); Immature Granulocytes % 7.3 % (0-4); Lymphocytes # 0.7 K/mcL (0.6-4.6); Lymphocytes % 5.7 %; Mean Corpuscular HGB Conc 31.8 g/dL (31.6-35.5); Mean Corpuscular Hemoglobin 32.3 pg (28.0-33.3); Mean Corpuscular Volume 101.4 fL (83.0-100.0); Mean Platelet Volume 10.9 fL (9.4-12.4); Monocytes # 0.7 K/mcL (0.0-1.3); Monocytes % 5.5 %; Neutrophils # 9.9 K/mcL (1.6-8.9); Platelet Count 187 K/mcL (140-400); Red Blood Count 4.18 M/mcL (4.19-5.50); Segmented Neutrophils % 81.4 %; White Blood Count 12.1 K/mcL (4.3-11.1)
[2022-03-12] MEDS: FentaNYL (PF) 1,000 MCG/100 ML IV.SOLN IVC SCH ×3 (03:50→16:43)
[2022-03-12 04:02] LABS: Potassium 4.9 mEq/L (3.5-5.1)
[2022-03-12 04:37] LABS: Platelet Estimate Normal (Normal); Smudge Cells Present (Not Present)
[2022-03-12] MEDS: Ipratropium/Albuterol Neb 3 ML IH SCH ×12 (04:50→23:58)
[2022-03-12 04:59] LABS: ABG Base Excess 5 mEq/L (-2 to 3); ABG HCO3 33 mEq/L (21-27); ABG Oxygen Saturation 95 % (95-98); ABG PCO2 60 mmHg (35-45); ABG PH 7.34 pH Units (7.32-7.45); ABG PO2 83 mmHg (85-104); ABG TCO2 35 mEq/L (20-26); Blood Gas Modality ASSIST CONTROL; Blood Gas VT 520 cc
[2022-03-12] MEDS: MethylPREDNISolone 40 MG/ML VIAL IVP SCH ×4 (05:03→23:01)
[2022-03-12] MEDS: *HR* Heparin 5,000 UNIT/ML VIAL SQ SCH ×3 (05:03→21:00)
[2022-03-12] MEDS: Insulin LISPRO 300 UNITS/3 ML VIAL SUBQ SCH ×4 (05:13→23:01)
[2022-03-12] MEDS: Chlorhexidine Rinse 15 ML MOUTHWASH MM SCH ×2 (07:16→20:16)
[2022-03-12] MEDS: QUEtiapine Fumarate 100 MG TABLET PO SCH ×2 (07:16→20:16)
[2022-03-12] MEDS: Pantoprazole 40 MG VIAL IVP SCH (07:16)
[2022-03-12] MEDS ORDERED: Furosemide 40 MG/4 ML VIAL IVP ONE ×2 (09:17→18:00)
[2022-03-12] MEDS: Norepinephrine 4 MG/254 ML IV.SOLN IVC SCH ×2 (11:55→23:01)
[2022-03-12] MEDS: levoFLOXacin 750 MG/150 ML 750 MG/150 ML BAG IVPB SCH (19:12)
[2022-03-13] MEDS: FentaNYL (PF) 1,000 MCG/100 ML IV.SOLN IVC SCH ×2 (00:25→07:47)
[2022-03-13] MEDS: Dexmedetomidine HCl 400 MCG/100 ML MLS IVC SCH ×4 (00:25→20:17)
[2022-03-13] MEDS: Artificial Tears SOLN 15 ML BOTTLE BOTH EYES SCH ×5 (03:07→20:19)
[2022-03-13 03:24] LABS: Basophils % 0.1 %; Hematocrit 44.4 % (37.5-50.1); Hemoglobin 14.4 g/dL (12.9-16.9); Immature Granulocytes % 10.6 % (0-4); Lymphocytes # 0.6 K/mcL (0.6-4.6); Lymphocytes % 5.5 %; Mean Corpuscular HGB Conc 32.4 g/dL (31.6-35.5); Mean Corpuscular Hemoglobin 32.6 pg (28.0-33.3); Mean Corpuscular Volume 100.5 fL (83.0-100.0); Mean Platelet Volume 10.9 fL (9.4-12.4); Monocytes # 0.6 K/mcL (0.0-1.3); Monocytes % 5.4 %; Neutrophils # 8.7 K/mcL (1.6-8.9); Platelet Count 190 K/mcL (140-400); Red Blood Count 4.42 M/mcL (4.19-5.50); Red Cell Distribution Width 11.7 % (11.5-14.5); Segmented Neutrophils % 78.4 %; White Blood Count 11.1 K/mcL (4.3-11.1)
[2022-03-13 03:41] LABS: Calcium 9.1 mg/dL (8.6-10.3); Magnesium 3.1 mg/dL (1.6-2.6); Phosphorous 5.4 mg/dL (2.7-4.5); Potassium 5.1 mEq/L (3.5-5.1)
[2022-03-13 04:02] LABS: Platelet Estimate Normal (Normal)
[2022-03-13] MEDS: Ipratropium/Albuterol Neb 3 ML IH SCH ×6 (04:30→23:01)
[2022-03-13 04:33] LABS: ABG Base Excess 8 mEq/L (-2 to 3); ABG HCO3 37 mEq/L (21-27); ABG Oxygen Saturation 95 % (95-98); ABG PCO2 64 mmHg (35-45); ABG PH 7.37 pH Units (7.32-7.45); ABG PO2 84 mmHg (85-104); ABG TCO2 38 mEq/L (20-26); Blood Gas Modality ASSIST CONTROL; Blood Gas VT 520 cc
[2022-03-13] MEDS: *HR* Heparin 5,000 UNIT/ML VIAL SQ SCH ×3 (05:08→20:50)
[2022-03-13] MEDS: Insulin LISPRO 300 UNITS/3 ML VIAL SUBQ SCH ×3 (05:08→17:52)
[2022-03-13] MEDS: MethylPREDNISolone 40 MG/ML VIAL IVP SCH ×4 (05:08→20:16)
[2022-03-13] MEDS: Chlorhexidine Rinse 15 ML MOUTHWASH MM SCH ×2 (07:46→20:18)
[2022-03-13] MEDS: Pantoprazole 40 MG VIAL IVP SCH (07:46)
[2022-03-13] MEDS: QUEtiapine Fumarate 100 MG TABLET PO SCH ×2 (07:47→20:17)
[2022-03-13] MEDS: Norepinephrine 4 MG/254 ML IV.SOLN IVC SCH (17:43)
[2022-03-14] MEDS: Dexmedetomidine HCl 400 MCG/100 ML MLS IVC SCH ×4 (00:24→13:52)
[2022-03-14] MEDS: Artificial Tears SOLN 15 ML BOTTLE BOTH EYES SCH ×4 (00:52→11:33)
[2022-03-14] MEDS: Insulin LISPRO 300 UNITS/3 ML VIAL SUBQ SCH ×5 (00:53→19:36)
[2022-03-14] MEDS: Ipratropium/Albuterol Neb 3 ML IH SCH ×5 (03:34→20:05)
[2022-03-14 03:49] LABS: VBG Ionized Calcium 1.17 mmol/L (1.15-1.35)
[2022-03-14 03:55] LABS: Basophils % 0.1 %; Hematocrit 46.9 % (37.5-50.1); Hemoglobin 15.1 g/dL (12.9-16.9); Immature Granulocytes % 10.9 % (0-4); Lymphocytes # 0.8 K/mcL (0.6-4.6); Lymphocytes % 5.7 %; Mean Corpuscular HGB Conc 32.2 g/dL (31.6-35.5); Mean Corpuscular Hemoglobin 32.1 pg (28.0-33.3); Mean Corpuscular Volume 99.8 fL (83.0-100.0); Mean Platelet Volume 10.8 fL (9.4-12.4); Monocytes # 0.6 K/mcL (0.0-1.3); Monocytes % 4.3 %; Neutrophils # 10.7 K/mcL (1.6-8.9); Platelet Count 194 K/mcL (140-400); Red Cell Distribution Width 11.4 % (11.5-14.5); White Blood Count 13.6 K/mcL (4.3-11.1)
[2022-03-14 04:11] LABS: Magnesium 2.8 mg/dL (1.6-2.6); Phosphorous 3.8 mg/dL (2.7-4.5)
[2022-03-14 04:14] LABS: Alanine Aminotransferase 79 Units/L (7-52); Albumin 3.7 g/dL (3.5-5.7); Albumin/Globulin Ratio 1.2 (1.1-2.2); Alkaline Phosphatase 63 Units/L (34-104); Aspartate Amino Transferase 31 Units/L (13-39); BUN/Creatinine Ratio 62 (6-26); Bilirubin,Total 0.5 mg/dL (0.3-1.0); Blood Urea Nitrogen 79 mg/dL (8-23); Calcium 9.4 mg/dL (8.6-10.3); Carbon Dioxide 37 mEq/L (23-29); Chloride 100 mEq/L (98-107); Glucose 270 mg/dL (70-105); Osmolality,Calculated 333 (280-300); Potassium 5.6 mEq/L (3.5-5.1); Sodium 145 mEq/L (136-145); Total Protein 6.7 g/dL (6.4-8.9); eGFR For African Americans > 60 (> 60); eGFR For Non-African Americans 56 (> 60)
[2022-03-14 04:35] LABS: ABG Base Excess 11 mEq/L (-2 to 3); ABG HCO3 39 mEq/L (21-27); ABG Oxygen Saturation 96 % (95-98); ABG PCO2 66 mmHg (35-45); ABG PH 7.38 pH Units (7.32-7.45); ABG PO2 87 mmHg (85-104); ABG TCO2 41 mEq/L (20-26); Blood Gas Modality AF; Blood Gas VT 520 cc
[2022-03-14] MEDS: Norepinephrine 4 MG/254 ML IV.SOLN IVC SCH (05:57)
[2022-03-14] MEDS: MethylPREDNISolone 40 MG/ML VIAL IVP SCH ×2 (06:02→17:31)
[2022-03-14] MEDS: *HR* Heparin 5,000 UNIT/ML VIAL SQ SCH ×3 (06:02→22:40)
[2022-03-14] MEDS ORDERED: Insulin Human Regular 10 UNIT in 0.9 % Sodium Chloride 10 ML IV ONE (06:56)
[2022-03-14] MEDS ORDERED: *HR* Dextrose 50 % in Water (Syg) 50 ML SYRINGE IVP ONE (06:56)
[2022-03-14] MEDS ORDERED: Calcium Gluconate 1gm/50mL 1 GM/50 ML BAG IVPB ONE (06:56)
[2022-03-14] MEDS: Pantoprazole 40 MG VIAL IVP SCH (08:15)
[2022-03-14] MEDS: QUEtiapine Fumarate 100 MG TABLET PO SCH ×2 (08:15→19:37)
[2022-03-14] MEDS: Chlorhexidine Rinse 15 ML MOUTHWASH MM SCH (08:15)
[2022-03-14] MEDS: SODIUM ZIRCONIUM CYCLOSILICATE 5 GM POWD.PACK PO SCH (08:15)
[2022-03-14 18:10] LABS: BUN/Creatinine Ratio 60 (6-26); Blood Urea Nitrogen 68 mg/dL (8-23); Calcium 9.7 mg/dL (8.6-10.3); Carbon Dioxide 42 mEq/L (23-29); Chloride 105 mEq/L (98-107); Glucose 105 mg/dL (70-105); Osmolality,Calculated 332 (280-300); Potassium 4.4 mEq/L (3.5-5.1); Sodium 151 mEq/L (136-145); eGFR For African Americans > 60 (> 60); eGFR For Non-African Americans > 60 (> 60)
[2022-03-14 19:15] LABS: Estimated Average Glucose 160 mg/dl; Hemoglobin A1C 7.2 %
[2022-03-14] MEDS: traZODone 50 MG TABLET PO SCH (19:37)
[2022-03-15] MEDS: Ipratropium/Albuterol Neb 3 ML IH SCH ×6 (00:19→20:23)
[2022-03-15] MEDS: Insulin LISPRO 300 UNITS/3 ML VIAL SUBQ SCH ×6 (00:44→19:49)
[2022-03-15] MEDS: Dexmedetomidine HCl 400 MCG/100 ML MLS IVC SCH (03:20)
[2022-03-15 04:02] LABS: Basophils % 0.1 %; Eosinophils % 0.1 %; Hematocrit 51.7 % (37.5-50.1); Hemoglobin 16.2 g/dL (12.9-16.9); Immature Granulocytes % 12.1 % (0-4); Lymphocytes # 1.1 K/mcL (0.6-4.6); Lymphocytes % 6.1 %; Mean Corpuscular HGB Conc 31.3 g/dL (31.6-35.5); Mean Corpuscular Hemoglobin 31.6 pg (28.0-33.3); Mean Corpuscular Volume 100.8 fL (83.0-100.0); Mean Platelet Volume 10.8 fL (9.4-12.4); Monocytes # 0.8 K/mcL (0.0-1.3); Monocytes % 4.5 %; Neutrophils # 14.2 K/mcL (1.6-8.9); Platelet Count 176 K/mcL (140-400); Red Blood Count 5.13 M/mcL (4.19-5.50); Red Cell Distribution Width 11.7 % (11.5-14.5); Segmented Neutrophils % 77.1 %; White Blood Count 18.4 K/mcL (4.3-11.1)
[2022-03-15 04:10] LABS: VBG Ionized Calcium 1.14 mmol/L (1.15-1.35)
[2022-03-15 04:22] LABS: Magnesium 2.7 mg/dL (1.6-2.6); Phosphorous 3.2 mg/dL (2.7-4.5)
[2022-03-15 04:24] LABS: Alanine Aminotransferase 120 Units/L (7-52); Albumin 3.8 g/dL (3.5-5.7); Albumin/Globulin Ratio 1.2 (1.1-2.2); Alkaline Phosphatase 72 Units/L (34-104); Aspartate Amino Transferase 53 Units/L (13-39); BUN/Creatinine Ratio 60 (6-26); Bilirubin,Total 0.7 mg/dL (0.3-1.0); Blood Urea Nitrogen 68 mg/dL (8-23); Calcium 9.8 mg/dL (8.6-10.3); Carbon Dioxide 39 mEq/L (23-29); Chloride 108 mEq/L (98-107); Globulin 3.1 g/dL (2.4-3.5); Glucose 138 mg/dL (70-105); Osmolality,Calculated 338 (280-300); Potassium 4.6 mEq/L (3.5-5.1); Sodium 153 mEq/L (136-145); Total Protein 6.9 g/dL (6.4-8.9); eGFR For African Americans > 60 (> 60); eGFR For Non-African Americans > 60 (> 60)
[2022-03-15 04:45] LABS: Platelet Estimate Normal (Normal)
[2022-03-15] MEDS: *HR* Heparin 5,000 UNIT/ML VIAL SQ SCH ×3 (05:34→23:03)
[2022-03-15] MEDS: Pantoprazole 40 MG VIAL IVP SCH (07:53)
[2022-03-15] MEDS: MethylPREDNISolone 40 MG/ML VIAL IVP SCH (07:54)
[2022-03-15] MEDS: D5% in Water 1,000 ML IVC SCH ×2 (08:09→18:22)
[2022-03-15] MEDS: QUEtiapine Fumarate 100 MG TABLET PO SCH ×2 (12:06→19:49)
[2022-03-15] MEDS: SODIUM ZIRCONIUM CYCLOSILICATE 5 GM POWD.PACK PO SCH (12:06)
[2022-03-15 14:57] LABS: BUN/Creatinine Ratio 60 (6-26); Blood Urea Nitrogen 65 mg/dL (8-23); Calcium 9.6 mg/dL (8.6-10.3); Carbon Dioxide 41 mEq/L (23-29); Chloride 107 mEq/L (98-107); Glucose 152 mg/dL (70-105); Osmolality,Calculated 338 (280-300); Potassium 4.5 mEq/L (3.5-5.1); Sodium 153 mEq/L (136-145); eGFR For African Americans > 60 (> 60); eGFR For Non-African Americans > 60 (> 60)
[2022-03-15] MEDS: traZODone 50 MG TABLET PO SCH (19:49)
[2022-03-16] MEDS: Ipratropium/Albuterol Neb 3 ML IH SCH ×7 (00:01→23:49)
[2022-03-16] MEDS: Insulin LISPRO 300 UNITS/3 ML VIAL SUBQ SCH ×7 (00:09→23:12)
[2022-03-16] MEDS: D5% in Water 1,000 ML IVC SCH ×5 (03:35→20:33)
[2022-03-16 04:03] LABS: Hematocrit 51.1 % (37.5-50.1); Hemoglobin 16.5 g/dL (12.9-16.9); Mean Corpuscular HGB Conc 32.3 g/dL (31.6-35.5); Mean Corpuscular Hemoglobin 32.4 pg (28.0-33.3); Mean Corpuscular Volume 100.2 fL (83.0-100.0); Monocytes # 0.8 K/mcL (0.0-1.3); Platelet Count 153 K/mcL (140-400); Red Cell Distribution Width 11.6 % (11.5-14.5); White Blood Count 13.6 K/mcL (4.3-11.1)
[2022-03-16 04:12] LABS: INR 1.1; Prothrombin Time 12.7 Seconds (9.4-12.1)
[2022-03-16 04:14] LABS: Activated Partial Thrombo Time 31.5 Seconds (26.0-36.0)
[2022-03-16 04:21] LABS: Alanine Aminotransferase 143 Units/L (7-52); Albumin 3.6 g/dL (3.5-5.7); Albumin/Globulin Ratio 1.1 (1.1-2.2); Alkaline Phosphatase 64 Units/L (34-104); Aspartate Amino Transferase 50 Units/L (13-39); BUN/Creatinine Ratio 56 (6-26); Bilirubin,Total 0.7 mg/dL (0.3-1.0); Blood Urea Nitrogen 60 mg/dL (8-23); Calcium 9.5 mg/dL (8.6-10.3); Carbon Dioxide 38 mEq/L (23-29); Chloride 106 mEq/L (98-107); Globulin 3.2 g/dL (2.4-3.5); Glucose 124 mg/dL (70-105); Osmolality,Calculated 330 (280-300); Sodium 151 mEq/L (136-145); Total Protein 6.8 g/dL (6.4-8.9); eGFR For African Americans > 60 (> 60); eGFR For Non-African Americans > 60 (> 60)
[2022-03-16 04:22] LABS: Albumin 3.7 g/dL (3.5-5.7); Albumin/Globulin Ratio 1.2 (1.1-2.2); Bilirubin,Direct 0.2 mg/dL (0.0-0.2); Bilirubin,Indirect 0.5 mg/dL (0.0-1.0); Bilirubin,Total 0.7 mg/dL (0.3-1.0); Total Protein 6.7 g/dL (6.4-8.9)
[2022-03-16 05:09] LABS: Lymphocytes # 1.6 K/mcL (0.6-4.6); Neutrophils # 10.6 K/mcL (1.6-8.9)
[2022-03-16 05:10] LABS: Platelet Estimate Normal (Normal)
[2022-03-16] MEDS: *HR* Heparin 5,000 UNIT/ML VIAL SQ SCH ×3 (05:14→20:35)
[2022-03-16] MEDS: QUEtiapine Fumarate 100 MG TABLET PO SCH ×2 (07:45→20:33)
[2022-03-16] MEDS: MethylPREDNISolone 40 MG/ML VIAL IVP SCH (07:46)
[2022-03-16] MEDS: Pantoprazole 40 MG VIAL IVP SCH (07:46)
[2022-03-16 08:28] LABS: Magnesium 2.6 mg/dL (1.6-2.6); Phosphorous 3.3 mg/dL (2.7-4.5)
[2022-03-16 14:57] LABS: BUN/Creatinine Ratio 51 (6-26); Blood Urea Nitrogen 52 mg/dL (8-23); Carbon Dioxide 39 mEq/L (23-29); Chloride 104 mEq/L (98-107); Glucose 192 mg/dL (70-105); Osmolality,Calculated 325 (280-300); Potassium 3.8 mEq/L (3.5-5.1); Sodium 148 mEq/L (136-145); eGFR For African Americans > 60 (> 60); eGFR For Non-African Americans > 60 (> 60)
[2022-03-16] MEDS: traZODone 50 MG TABLET PO SCH (20:33)
[2022-03-17 00:04] LABS: BUN/Creatinine Ratio 45 (6-26); Blood Urea Nitrogen 46 mg/dL (8-23); Calcium 8.8 mg/dL (8.6-10.3); Carbon Dioxide 37 mEq/L (23-29); Chloride 103 mEq/L (98-107); Glucose 203 mg/dL (70-105); Osmolality,Calculated 318 (280-300); Potassium 3.7 mEq/L (3.5-5.1); Sodium 145 mEq/L (136-145); eGFR For African Americans > 60 (> 60); eGFR For Non-African Americans > 60 (> 60)
[2022-03-17 03:36] LABS: VBG Ionized Calcium 1.16 mmol/L (1.15-1.35)
[2022-03-17 03:39] LABS: Basophils # 0.1 K/mcL (0.0-0.2); Basophils % 0.5 %; Eosinophils % 0.4 %; Hematocrit 48.5 % (37.5-50.1); Hemoglobin 15.7 g/dL (12.9-16.9); Immature Granulocytes % 5.5 % (0-4); Lymphocytes # 1.4 K/mcL (0.6-4.6); Lymphocytes % 13.5 %; Mean Corpuscular HGB Conc 32.4 g/dL (31.6-35.5); Mean Corpuscular Hemoglobin 32.6 pg (28.0-33.3); Mean Corpuscular Volume 100.8 fL (83.0-100.0); Monocytes # 0.7 K/mcL (0.0-1.3); Neutrophils # 7.8 K/mcL (1.6-8.9); Platelet Count 122 K/mcL (140-400); Red Blood Count 4.81 M/mcL (4.19-5.50); Red Cell Distribution Width 11.5 % (11.5-14.5); Segmented Neutrophils % 73.1 %; White Blood Count 10.6 K/mcL (4.3-11.1)
[2022-03-17] MEDS: Ipratropium/Albuterol Neb 3 ML IH SCH ×6 (03:41→23:29)
[2022-03-17 03:56] LABS: Alanine Aminotransferase 145 Units/L (7-52); Albumin 3.5 g/dL (3.5-5.7); Albumin/Globulin Ratio 1.3 (1.1-2.2); Alkaline Phosphatase 63 Units/L (34-104); Aspartate Amino Transferase 45 Units/L (13-39); BUN/Creatinine Ratio 48 (6-26); Bilirubin,Total 0.9 mg/dL (0.3-1.0); Blood Urea Nitrogen 48 mg/dL (8-23); Calcium 8.8 mg/dL (8.6-10.3); Carbon Dioxide 38 mEq/L (23-29); Chloride 102 mEq/L (98-107); Globulin 2.7 g/dL (2.4-3.5); Glucose 158 mg/dL (70-105); Osmolality,Calculated 316 (280-300); Potassium 3.7 mEq/L (3.5-5.1); Sodium 145 mEq/L (136-145); Total Protein 6.2 g/dL (6.4-8.9); eGFR For African Americans > 60 (> 60); eGFR For Non-African Americans > 60 (> 60)
[2022-03-17 04:21] LABS: Platelet Estimate Slight Decrease (Normal)
[2022-03-17] MEDS: D5% in Water 1,000 ML IVC SCH ×2 (04:50→11:56)
[2022-03-17] MEDS: Insulin LISPRO 300 UNITS/3 ML VIAL SUBQ SCH ×5 (04:51→20:31)
[2022-03-17 05:02] LABS: Magnesium 2.3 mg/dL (1.6-2.6); Phosphorous 3.6 mg/dL (2.7-4.5)
[2022-03-17] MEDS: *HR* Heparin 5,000 UNIT/ML VIAL SQ SCH ×3 (05:38→20:30)
[2022-03-17] MEDS ORDERED: D5% in Water 1,000 ML IVC SCH (07:11)
[2022-03-17] MEDS: Pantoprazole 40 MG VIAL IVP SCH (07:42)
[2022-03-17] MEDS: QUEtiapine Fumarate 100 MG TABLET PO SCH ×2 (07:43→20:30)
[2022-03-17] MEDS: Dexmedetomidine HCl 400 MCG/100 ML MLS IVC SCH (07:43)
[2022-03-17] MEDS ORDERED: MethylPREDNISolone 40 MG/ML VIAL IVP SCH (09:00)
[2022-03-17] MEDS ORDERED: E-Z-PAQUE (BARIUM SULF) SUSP 1 BOTTLE PO ONE (09:02)
[2022-03-17] MEDS ORDERED: E-Z-HD (BARIUM SULF) SUSPENSION PO ONE (09:02)
[2022-03-17] MEDS: traZODone 50 MG TABLET PO SCH (20:30)
[2022-03-17] MEDS: Acetaminophen 325 MG TABLET PO PRN (20:35)
[2022-03-18 01:24] LABS: Basophils % 0.3 %; Eosinophils % 0.1 %; Hematocrit 48.4 % (37.5-50.1); Hemoglobin 16.1 g/dL (12.9-16.9); Immature Granulocytes % 2.1 % (0-4); Immature Platelets 11.4 % (1.1-6.1); Lymphocytes # 1.3 K/mcL (0.6-4.6); Lymphocytes % 8.8 %; Mean Corpuscular HGB Conc 33.3 g/dL (31.6-35.5); Mean Corpuscular Hemoglobin 32.6 pg (28.0-33.3); Mean Platelet Volume 11.8 fL (9.4-12.4); Monocytes # 0.7 K/mcL (0.0-1.3); Monocytes % 4.7 %; Neutrophils # 12.3 K/mcL (1.6-8.9); Platelet Count 98 K/mcL (140-400); Red Blood Count 4.94 M/mcL (4.19-5.50); Red Cell Distribution Width 11.3 % (11.5-14.5); White Blood Count 14.6 K/mcL (4.3-11.1)
[2022-03-18 01:25] LABS: VBG Ionized Calcium 1.04 mmol/L (1.15-1.35)
[2022-03-18 02:40] LABS: Magnesium 2.2 mg/dL (1.6-2.6); Phosphorous 4.3 mg/dL (2.7-4.5)
[2022-03-18] MEDS: Ipratropium/Albuterol Neb 3 ML IH SCH ×6 (03:51→23:53)
[2022-03-18] MEDS: *HR* Heparin 5,000 UNIT/ML VIAL SQ SCH ×3 (05:06→20:42)
[2022-03-18] MEDS: Insulin LISPRO 300 UNITS/3 ML VIAL SUBQ SCH ×4 (07:28→21:02)
[2022-03-18] MEDS: QUEtiapine Fumarate 100 MG TABLET PO SCH ×2 (08:17→20:42)
[2022-03-18] MEDS: D5% in Water 1,000 ML IVC SCH ×2 (08:24→20:44)
[2022-03-18 13:54] LABS: Alanine Aminotransferase 138 Units/L (7-52); Albumin 3.3 g/dL (3.5-5.7); Albumin/Globulin Ratio 1.2 (1.1-2.2); Alkaline Phosphatase 67 Units/L (34-104); Aspartate Amino Transferase 40 Units/L (13-39); BUN/Creatinine Ratio 44 (6-26); Bilirubin,Total 0.8 mg/dL (0.3-1.0); Blood Urea Nitrogen 58 mg/dL (8-23); Calcium 8.3 mg/dL (8.6-10.3); Carbon Dioxide 37 mEq/L (23-29); Chloride 94 mEq/L (98-107); Globulin 2.8 g/dL (2.4-3.5); Glucose 177 mg/dL (70-105); Osmolality,Calculated 303 (280-300); Potassium 3.8 mEq/L (3.5-5.1); Sodium 136 mEq/L (136-145); Total Protein 6.1 g/dL (6.4-8.9); eGFR For African Americans > 60 (> 60); eGFR For Non-African Americans 54 (> 60)
[2022-03-18] MEDS: Budesonide/Formoterol 80/4.5 1 PUFF INH IH SCH (19:46)
[2022-03-18] MEDS: Famotidine 20 MG TABLET PO SCH (20:41)
[2022-03-18] MEDS: traZODone 50 MG TABLET PO SCH (20:41)
[2022-03-19 02:18] LABS: Lymphocytes % 15.7 %
[2022-03-19 02:20] LABS: Basophils % 0.2 %; Eosinophils # 0.1 K/mcL (0.0-0.6); Eosinophils % 0.8 %; Hematocrit 41.2 % (37.5-50.1); Hemoglobin 14.2 g/dL (12.9-16.9); Immature Granulocytes % 2.1 % (0-4); Immature Platelets 15.2 % (1.1-6.1); Lymphocytes # 1.4 K/mcL (0.6-4.6); Mean Corpuscular HGB Conc 34.5 g/dL (31.6-35.5); Mean Corpuscular Hemoglobin 32.5 pg (28.0-33.3); Mean Corpuscular Volume 94.3 fL (83.0-100.0); Mean Platelet Volume 11.8 fL (9.4-12.4); Monocytes # 0.7 K/mcL (0.0-1.3); Monocytes % 8.1 %; Neutrophils # 6.6 K/mcL (1.6-8.9); Red Blood Count 4.37 M/mcL (4.19-5.50); Red Cell Distribution Width 11.1 % (11.5-14.5); Segmented Neutrophils % 73.1 %
[2022-03-19 02:24] LABS: Platelet Count 74 K/mcL (140-400)
[2022-03-19 02:31] LABS: VBG Ionized Calcium 1.07 mmol/L (1.15-1.35)
[2022-03-19 02:36] LABS: Alanine Aminotransferase 132 Units/L (7-52); Albumin 3.2 g/dL (3.5-5.7); Albumin/Globulin Ratio 1.2 (1.1-2.2); Alkaline Phosphatase 64 Units/L (34-104); Aspartate Amino Transferase 38 Units/L (13-39); BUN/Creatinine Ratio 43 (6-26); Blood Urea Nitrogen 49 mg/dL (8-23); Calcium 8.2 mg/dL (8.6-10.3); Carbon Dioxide 34 mEq/L (23-29); Chloride 94 mEq/L (98-107); Globulin 2.6 g/dL (2.4-3.5); Glucose 161 mg/dL (70-105); Osmolality,Calculated 292 (280-300); Phosphorous 2.9 mg/dL (2.7-4.5); Potassium 3.1 mEq/L (3.5-5.1); Sodium 133 mEq/L (136-145); Total Protein 5.8 g/dL (6.4-8.9); eGFR For African Americans > 60 (> 60); eGFR For Non-African Americans > 60 (> 60)
[2022-03-19] MEDS: Ipratropium/Albuterol Neb 3 ML IH SCH ×6 (03:39→23:23)
[2022-03-19] MEDS: *HR* Heparin 5,000 UNIT/ML VIAL SQ SCH ×3 (05:09→20:18)
[2022-03-19] MEDS ORDERED: Calcium Gluconate 1gm/50mL 1 GM/50 ML BAG IVPB ONE (07:17)
[2022-03-19] MEDS ORDERED: Potassium Chloride Elixir 20 MEQ/15 ML UDC PO ONE (07:17)
[2022-03-19] MEDS: Budesonide/Formoterol 80/4.5 1 PUFF INH IH SCH ×2 (07:37→20:09)
[2022-03-19] MEDS: Insulin LISPRO 300 UNITS/3 ML VIAL SUBQ SCH ×4 (08:30→20:18)
[2022-03-19] MEDS: Cholecalciferol (D-3) 1,000 UNIT (25MCG) TABLET PO SCH (08:31)
[2022-03-19] MEDS: QUEtiapine Fumarate 100 MG TABLET PO SCH ×2 (08:31→20:17)
[2022-03-19] MEDS: Famotidine 20 MG TABLET PO SCH ×2 (08:32→20:17)
[2022-03-19] MEDS: Aspirin 81 MG TAB.CHEW PO SCH (08:32)
[2022-03-19] MEDS: D5% in Water 1,000 ML IVC SCH ×2 (09:50→23:01)
[2022-03-19] MEDS: lisinopriL 10 MG TABLET PO SCH (09:57)
[2022-03-19] MEDS: traZODone 50 MG TABLET PO SCH (20:17)
[2022-03-20] MEDS: Ipratropium/Albuterol Neb 3 ML IH SCH ×6 (04:12→23:30)
[2022-03-20] MEDS: *HR* Heparin 5,000 UNIT/ML VIAL SQ SCH (04:58)
[2022-03-20] MEDS: Budesonide/Formoterol 80/4.5 1 PUFF INH IH SCH ×2 (07:54→20:23)
[2022-03-20 08:30] LABS: Basophils % 0.1 %; White Blood Count 7.1 K/mcL (4.3-11.1)
[2022-03-20 08:32] LABS: Eosinophils # 0.1 K/mcL (0.0-0.6); Eosinophils % 1.6 %; Hematocrit 37.8 % (37.5-50.1); Immature Granulocytes % 1.3 % (0-4); Immature Platelets 18.6 % (1.1-6.1); Lymphocytes # 1.1 K/mcL (0.6-4.6); Mean Corpuscular HGB Conc 34.4 g/dL (31.6-35.5); Mean Corpuscular Hemoglobin 32.3 pg (28.0-33.3); Mean Corpuscular Volume 93.8 fL (83.0-100.0); Mean Platelet Volume 12.4 fL (9.4-12.4); Monocytes # 0.7 K/mcL (0.0-1.3); Monocytes % 9.9 %; Red Blood Count 4.03 M/mcL (4.19-5.50); Segmented Neutrophils % 71.1 %
[2022-03-20 08:33] LABS: Neutrophils # 5.1 K/mcL (1.6-8.9); Platelet Count 80 K/mcL (140-400)
[2022-03-20 08:40] LABS: VBG Ionized Calcium 1.14 mmol/L (1.15-1.35)
[2022-03-20 08:50] LABS: Alanine Aminotransferase 132 Units/L (7-52); Albumin 3.2 g/dL (3.5-5.7); Albumin/Globulin Ratio 1.3 (1.1-2.2); Alkaline Phosphatase 59 Units/L (34-104); Aspartate Amino Transferase 39 Units/L (13-39); BUN/Creatinine Ratio 34 (6-26); Bilirubin,Total 0.8 mg/dL (0.3-1.0); Blood Urea Nitrogen 44 mg/dL (8-23); Calcium 8.4 mg/dL (8.6-10.3); Carbon Dioxide 33 mEq/L (23-29); Chloride 93 mEq/L (98-107); Globulin 2.4 g/dL (2.4-3.5); Glucose 148 mg/dL (70-105); Osmolality,Calculated 286 (280-300); Potassium 3.5 mEq/L (3.5-5.1); Sodium 131 mEq/L (136-145); Total Protein 5.6 g/dL (6.4-8.9); eGFR For African Americans > 60 (> 60); eGFR For Non-African Americans 54 (> 60)
[2022-03-20] MEDS: lisinopriL 10 MG TABLET PO SCH (09:18)
[2022-03-20] MEDS: D5% in Water 1,000 ML IVC SCH (09:19)
[2022-03-20] MEDS: Cholecalciferol (D-3) 1,000 UNIT (25MCG) TABLET PO SCH (09:27)
[2022-03-20] MEDS: QUEtiapine Fumarate 100 MG TABLET PO SCH ×2 (09:27→20:53)
[2022-03-20] MEDS: Aspirin 81 MG TAB.CHEW PO SCH (09:27)
[2022-03-20] MEDS: Famotidine 20 MG TABLET PO SCH ×2 (09:27→20:52)
[2022-03-20] MEDS: Insulin LISPRO 300 UNITS/3 ML VIAL SUBQ SCH ×4 (09:29→20:53)
[2022-03-20] MEDS ORDERED: Calcium Gluconate 1gm/50mL 1 GM/50 ML BAG IVPB ONE (09:30)
[2022-03-20 16:18] LABS: Bacteria,Urine Few per hpf (None-Few); Bilirubin,Urine Negative (Negative); Blood,Urine Large (Negative); Clarity,Urine Turbid (Clear); Color,Urine Colorless (Yellow); Glucose,Urine (UA) Normal (Normal); Ketones,Urine Negative (Negative); Leukocyte Esterase,Urine Negative (Negative); Nitrite,Urine Negative (Negative); Protein,Urine Trace mg/dL (Neg-Trace); Specific Gravity,Urine 1.008 (1.010-1.025); Urobilinogen,Urine Normal (Normal); WBC,Urine 0-3 per hpf (0-3)
[2022-03-20] MEDS: traZODone 50 MG TABLET PO SCH (20:53)
[2022-03-21 01:46] LABS: Basophils % 0.2 %; Eosinophils % 1.6 %; Hematocrit 36.3 % (37.5-50.1); Immature Granulocytes % 1.1 % (0-4); Red Cell Distribution Width 10.9 % (11.5-14.5)
[2022-03-21 01:48] LABS: Eosinophils # 0.1 K/mcL (0.0-0.6); Hemoglobin 12.3 g/dL (12.9-16.9); Immature Platelets 16.8 % (1.1-6.1); Lymphocytes # 1.2 K/mcL (0.6-4.6); Lymphocytes % 18.8 %; Mean Corpuscular HGB Conc 33.9 g/dL (31.6-35.5); Mean Corpuscular Hemoglobin 31.7 pg (28.0-33.3); Mean Corpuscular Volume 93.6 fL (83.0-100.0); Mean Platelet Volume 11.5 fL (9.4-12.4); Monocytes # 0.6 K/mcL (0.0-1.3); Monocytes % 9.9 %; Neutrophils # 4.4 K/mcL (1.6-8.9); Red Blood Count 3.88 M/mcL (4.19-5.50); Segmented Neutrophils % 68.4 %; White Blood Count 6.4 K/mcL (4.3-11.1)
[2022-03-21 01:59] LABS: Platelet Count 90 K/mcL (140-400)
[2022-03-21 02:14] LABS: BUN/Creatinine Ratio 32 (6-26); Blood Urea Nitrogen 41 mg/dL (8-23); Calcium 8.5 mg/dL (8.6-10.3); Carbon Dioxide 30 mEq/L (23-29); Chloride 97 mEq/L (98-107); Glucose 154 mg/dL (70-105); Osmolality,Calculated 287 (280-300); Potassium 4.1 mEq/L (3.5-5.1); Sodium 132 mEq/L (136-145); eGFR For African Americans > 60 (> 60); eGFR For Non-African Americans 56 (> 60)
[2022-03-21] MEDS: Ipratropium/Albuterol Neb 3 ML IH SCH ×6 (04:20→23:01)
[2022-03-21] MEDS: Budesonide/Formoterol 80/4.5 1 PUFF INH IH SCH ×2 (07:12→20:13)
[2022-03-21] MEDS: Insulin LISPRO 300 UNITS/3 ML VIAL SUBQ SCH ×4 (07:53→19:35)
[2022-03-21] MEDS: Cholecalciferol (D-3) 1,000 UNIT (25MCG) TABLET PO SCH (08:06)
[2022-03-21] MEDS: Aspirin 81 MG TAB.CHEW PO SCH (08:06)
[2022-03-21] MEDS: lisinopriL 10 MG TABLET PO SCH (08:07)
[2022-03-21] MEDS: QUEtiapine Fumarate 100 MG TABLET PO SCH ×2 (08:07→19:49)
[2022-03-21] MEDS: Famotidine 20 MG TABLET PO SCH ×2 (08:07→19:49)
[2022-03-21] MEDS: traZODone 50 MG TABLET PO SCH (19:48)
[2022-03-21] MEDS: Acetaminophen 325 MG TABLET PO PRN (19:58)
[2022-03-22] MEDS: Ipratropium/Albuterol Neb 3 ML IH SCH ×6 (04:25→23:20)
[2022-03-22] MEDS: Insulin LISPRO 300 UNITS/3 ML VIAL SUBQ SCH ×4 (07:07→20:30)
[2022-03-22 07:12] LABS: Basophils % 0.3 %; Eosinophils # 0.2 K/mcL (0.0-0.6); Eosinophils % 2.7 %; Hemoglobin 11.7 g/dL (12.9-16.9); Immature Granulocytes % 0.7 % (0-4); Lymphocytes # 1.1 K/mcL (0.6-4.6); Mean Corpuscular HGB Conc 33.4 g/dL (31.6-35.5); Mean Corpuscular Hemoglobin 31.5 pg (28.0-33.3); Mean Corpuscular Volume 94.3 fL (83.0-100.0); Monocytes # 0.8 K/mcL (0.0-1.3); Monocytes % 12.5 %; Platelet Count 118 K/mcL (140-400); Red Blood Count 3.71 M/mcL (4.19-5.50); Red Cell Distribution Width 11.1 % (11.5-14.5); Segmented Neutrophils % 65.8 %
[2022-03-22] MEDS: Budesonide/Formoterol 80/4.5 1 PUFF INH IH SCH ×2 (07:14→20:10)
[2022-03-22 07:26] LABS: BUN/Creatinine Ratio 31 (6-26); Blood Urea Nitrogen 35 mg/dL (8-23); Calcium 8.5 mg/dL (8.6-10.3); Carbon Dioxide 31 mEq/L (23-29); Chloride 100 mEq/L (98-107); Glucose 134 mg/dL (70-105); Osmolality,Calculated 290 (280-300); Potassium 4.5 mEq/L (3.5-5.1); Sodium 135 mEq/L (136-145); eGFR For African Americans > 60 (> 60); eGFR For Non-African Americans > 60 (> 60)
[2022-03-22] MEDS: Cholecalciferol (D-3) 1,000 UNIT (25MCG) TABLET PO SCH (09:44)
[2022-03-22] MEDS: Aspirin 81 MG TAB.CHEW PO SCH (09:44)
[2022-03-22] MEDS: lisinopriL 10 MG TABLET PO SCH (09:44)
[2022-03-22] MEDS: Famotidine 20 MG TABLET PO SCH ×2 (09:44→20:35)
[2022-03-22] MEDS: QUEtiapine Fumarate 100 MG TABLET PO SCH ×2 (09:45→20:35)
[2022-03-22] MEDS: traZODone 50 MG TABLET PO SCH (20:35)
[2022-03-23] MEDS: Ipratropium/Albuterol Neb 3 ML IH SCH ×3 (03:33→11:02)
[2022-03-23 06:58] LABS: Hematocrit 37.1 % (37.5-50.1); Hemoglobin 12.4 g/dL (12.9-16.9); Mean Corpuscular HGB Conc 33.4 g/dL (31.6-35.5); Mean Corpuscular Hemoglobin 31.9 pg (28.0-33.3); Mean Corpuscular Volume 95.4 fL (83.0-100.0); Mean Platelet Volume 12.2 fL (9.4-12.4); Platelet Count 122 K/mcL (140-400); Red Blood Count 3.89 M/mcL (4.19-5.50); Red Cell Distribution Width 11.2 % (11.5-14.5)
[2022-03-23 06:59] LABS: Basophils % 0.1 %; Eosinophils # 0.2 K/mcL (0.0-0.6); Eosinophils % 2.4 %; Immature Granulocytes % 0.6 % (0-4); Lymphocytes # 1.2 K/mcL (0.6-4.6); Lymphocytes % 17.6 %; Monocytes # 0.8 K/mcL (0.0-1.3); Monocytes % 11.2 %; Neutrophils # 4.7 K/mcL (1.6-8.9); Segmented Neutrophils % 68.1 %
[2022-03-23 07:22] LABS: Alanine Aminotransferase 114 Units/L (7-52); Albumin 3.2 g/dL (3.5-5.7); Albumin/Globulin Ratio 1.4 (1.1-2.2); Alkaline Phosphatase 56 Units/L (34-104); Aspartate Amino Transferase 36 Units/L (13-39); BUN/Creatinine Ratio 31 (6-26); Bilirubin,Total 0.5 mg/dL (0.3-1.0); Blood Urea Nitrogen 30 mg/dL (8-23); Calcium 8.8 mg/dL (8.6-10.3); Carbon Dioxide 29 mEq/L (23-29); Chloride 99 mEq/L (98-107); Globulin 2.3 g/dL (2.4-3.5); Glucose 113 mg/dL (70-105); Osmolality,Calculated 287 (280-300); Potassium 4.5 mEq/L (3.5-5.1); Sodium 135 mEq/L (136-145); Total Protein 5.5 g/dL (6.4-8.9); eGFR For African Americans > 60 (> 60); eGFR For Non-African Americans > 60 (> 60)
[2022-03-23] MEDS: Budesonide/Formoterol 80/4.5 1 PUFF INH IH SCH ×2 (07:46→19:50)
[2022-03-23] MEDS: Insulin LISPRO 300 UNITS/3 ML VIAL SUBQ SCH ×4 (08:25→20:25)
[2022-03-23] MEDS: Cholecalciferol (D-3) 1,000 UNIT (25MCG) TABLET PO SCH (08:35)
[2022-03-23] MEDS: QUEtiapine Fumarate 100 MG TABLET PO SCH ×2 (08:35→20:30)
[2022-03-23] MEDS: Famotidine 20 MG TABLET PO SCH ×2 (08:35→20:30)
[2022-03-23] MEDS: Aspirin 81 MG TAB.CHEW PO SCH (08:35)
[2022-03-23] MEDS: lisinopriL 10 MG TABLET PO SCH (08:36)
[2022-03-23] MEDS ORDERED: *HR* Propofol 200 MG/20 ML VIAL IVP ONE (10:10)
[2022-03-23] MEDS ORDERED: Lidocaine -MPF 2% 2 ML VIAL ONE (10:11)
[2022-03-23] MEDS ORDERED: *HR* FentaNYL (PF) 100 MCG/2 ML VIAL ONE (10:11)
[2022-03-23] MEDS ORDERED: Ondansetron 4 MG/2 ML VIAL ONE (10:11)
[2022-03-23] MEDS ORDERED: Lidocaine HCL 4 ML Topical Solution (Laryng-O-Jet Kit Sterile Pak) TP ONE (10:11)
[2022-03-23] MEDS ORDERED: *HR* Rocuronium Bromide 50 MG/5 ML VIAL ONE (10:11)
[2022-03-23] MEDS ORDERED: Ipratropium/Albuterol Neb 3 ML IH PRN (14:22)
[2022-03-23] MEDS ORDERED: *HR* Vasopressin 20 UNIT/ML VIAL ONE (16:42)
[2022-03-23] MEDS ORDERED: *HR* Dextrose 50 % in Water (Syg) 50 ML SYRINGE IVP PRN (18:57)
[2022-03-23] MEDS ORDERED: D5% in Water 1,000 ML IVC PRN (18:57)
[2022-03-23] MEDS ORDERED: Dextrose Gel 15 GM/37.5 ML TUBE PO PRN ×2 (18:57)
[2022-03-23] MEDS ORDERED: Acetaminophen 325 MG TABLET PO PRN (18:57)
[2022-03-23] MEDS ORDERED: Ondansetron ODT 4 MG TAB.RAPDIS SL PRN (18:57)
[2022-03-23] MEDS ORDERED: Melatonin 3 MG TABLET PO PRN (18:57)
[2022-03-23] MEDS ORDERED: Naloxone 0.4 MG/ML INJ IVP PRN (18:57)
[2022-03-23] MEDS: Ipratropium/Albuterol Neb 3 ML IH PRN (19:50)
[2022-03-23] MEDS: traZODone 50 MG TABLET PO SCH (20:30)
[2022-03-24 03:00] LABS: Basophils % 0.1 %; Eosinophils % 0.3 %; Hematocrit 32.8 % (37.5-50.1); Hemoglobin 11.2 g/dL (12.9-16.9); Immature Granulocytes % 0.4 % (0-4); Lymphocytes # 0.9 K/mcL (0.6-4.6); Lymphocytes % 11.7 %; Mean Corpuscular HGB Conc 34.1 g/dL (31.6-35.5); Mean Corpuscular Hemoglobin 32.4 pg (28.0-33.3); Mean Corpuscular Volume 94.8 fL (83.0-100.0); Mean Platelet Volume 11.6 fL (9.4-12.4); Monocytes # 0.5 K/mcL (0.0-1.3); Monocytes % 6.8 %; Neutrophils # 6.1 K/mcL (1.6-8.9); Platelet Count 153 K/mcL (140-400); Red Blood Count 3.46 M/mcL (4.19-5.50); Red Cell Distribution Width 11.2 % (11.5-14.5); Segmented Neutrophils % 80.7 %; White Blood Count 7.6 K/mcL (4.3-11.1)
[2022-03-24 03:21] LABS: Alanine Aminotransferase 106 Units/L (7-52); Albumin/Globulin Ratio 1.3 (1.1-2.2); Alkaline Phosphatase 56 Units/L (34-104); Aspartate Amino Transferase 31 Units/L (13-39); BUN/Creatinine Ratio 28 (6-26); Bilirubin,Total 0.5 mg/dL (0.3-1.0); Blood Urea Nitrogen 26 mg/dL (8-23); Calcium 8.5 mg/dL (8.6-10.3); Carbon Dioxide 31 mEq/L (23-29); Chloride 100 mEq/L (98-107); Globulin 2.3 g/dL (2.4-3.5); Glucose 163 mg/dL (70-105); Osmolality,Calculated 288 (280-300); Potassium 4.9 mEq/L (3.5-5.1); Sodium 135 mEq/L (136-145); Total Protein 5.3 g/dL (6.4-8.9); eGFR For African Americans > 60 (> 60); eGFR For Non-African Americans > 60 (> 60)
[2022-03-24] MEDS: Insulin LISPRO 300 UNITS/3 ML VIAL SUBQ SCH ×4 (07:09→20:35)
[2022-03-24] MEDS: Budesonide/Formoterol 80/4.5 1 PUFF INH IH SCH ×2 (07:10→21:27)
[2022-03-24] MEDS: Ipratropium/Albuterol Neb 3 ML IH PRN (07:10)
[2022-03-24] MEDS: lisinopriL 10 MG TABLET PO SCH (08:27)
[2022-03-24] MEDS: Aspirin 81 MG TAB.CHEW PO SCH (08:27)
[2022-03-24] MEDS: QUEtiapine Fumarate 100 MG TABLET PO SCH ×2 (08:27→20:39)
[2022-03-24] MEDS: Cholecalciferol (D-3) 1,000 UNIT (25MCG) TABLET PO SCH (08:27)
[2022-03-24] MEDS: Famotidine 20 MG TABLET PO SCH ×2 (08:27→20:38)
[2022-03-24] MEDS: traZODone 50 MG TABLET PO SCH (20:38)
[2022-03-25] MEDS: Insulin LISPRO 300 UNITS/3 ML VIAL SUBQ SCH ×4 (07:10→22:26)
[2022-03-25] MEDS: QUEtiapine Fumarate 100 MG TABLET PO SCH ×2 (07:47→22:40)
[2022-03-25] MEDS: lisinopriL 10 MG TABLET PO SCH (07:47)
[2022-03-25] MEDS: Famotidine 20 MG TABLET PO SCH ×2 (07:47→22:40)
[2022-03-25] MEDS: Aspirin 81 MG TAB.CHEW PO SCH (07:47)
[2022-03-25] MEDS: Cholecalciferol (D-3) 1,000 UNIT (25MCG) TABLET PO SCH (07:47)
[2022-03-25] MEDS: Budesonide/Formoterol 80/4.5 1 PUFF INH IH SCH ×2 (10:26→20:03)
[2022-03-25] MEDS: Ipratropium/Albuterol Neb 3 ML IH PRN (20:03)
[2022-03-25] MEDS: traZODone 50 MG TABLET PO SCH (22:40)
[2022-03-26] MEDS: Ipratropium/Albuterol Neb 3 ML IH PRN ×2 (07:35→19:46)
[2022-03-26] MEDS: Budesonide/Formoterol 80/4.5 1 PUFF INH IH SCH ×2 (07:35→19:46)
[2022-03-26] MEDS: Insulin LISPRO 300 UNITS/3 ML VIAL SUBQ SCH ×4 (07:47→20:42)
[2022-03-26] MEDS: Aspirin 81 MG TAB.CHEW PO SCH (07:52)
[2022-03-26] MEDS: lisinopriL 10 MG TABLET PO SCH (07:52)
[2022-03-26] MEDS: Famotidine 20 MG TABLET PO SCH ×2 (07:52→20:47)
[2022-03-26] MEDS: Cholecalciferol (D-3) 1,000 UNIT (25MCG) TABLET PO SCH (07:52)
[2022-03-26] MEDS: QUEtiapine Fumarate 100 MG TABLET PO SCH ×2 (07:53→20:47)
[2022-03-26] MEDS: traZODone 50 MG TABLET PO SCH (20:47)
[2022-03-27] MEDS: Budesonide/Formoterol 80/4.5 1 PUFF INH IH SCH (07:32)
[2022-03-27] MEDS: Insulin LISPRO 300 UNITS/3 ML VIAL SUBQ SCH ×3 (07:43→16:21)
[2022-03-27] MEDS: Cholecalciferol (D-3) 1,000 UNIT (25MCG) TABLET PO SCH (08:32)
[2022-03-27] MEDS: Aspirin 81 MG TAB.CHEW PO SCH (08:32)
[2022-03-27] MEDS: QUEtiapine Fumarate 100 MG TABLET PO SCH (08:32)
[2022-03-27] MEDS: Famotidine 20 MG TABLET PO SCH (08:33)
[2022-03-27] MEDS: lisinopriL 10 MG TABLET PO SCH (08:33)
[2022-03-27 15:48] LABS: Influenza A PCR Negative (Negative); Influenza B PCR Negative (Negative); Resp. Syncytial Virus PCR Negative (Negative)
[2022-03-27 15:51] LABS: SARS-CoV-2 by PCR (In House) Negative (Negative)
[2022-03-27 16:20] VITALS: BP 107/64; PULSE 63; TEMP 97.4; O2SAT 96
== END 2022-03-27 17:23 | DRG 987 ==
LOC: EMEROOARM 11:54 → ICNU 11:54 → OBSVTOIN 15:56 → SUATTDRO 15:56 → ICNU 17:23 → 2ANU 03-17 14:47
PROVIDERS: ADMIT Emergency Medicine; ATTEND Family Medicine